=== PATIENT | female | born 1950 | race Caucasian/White ===

== ENCOUNTER 2019-07-12 10:00 | Outpatient (CLI) | payer MEDICARE, SELFPAY ==
--- NOTE | ~2019-07-12 | XR_ITS ---
XR lumbar spine min 4V DATE: 07/12/2019 10:36 INDICATION: Spondylolisthesis, radiculopathy. Surgery 10 years ago. TECHNIQUE: AP, lateral, bilateral oblique and coned lateral lumbosacral views COMPARISON: 07/07/2018 lumbar spine FINDINGS: Diffuse osteopenia. Status post posterior and interbody spinal fusion at L5-S1. There is cupping of the inferior vertebral endplate of L4 consistent with old compression fracture. There is moderate osteopenia. There is mild retrolisthesis at L4-5. There is mild degenerative disease at L2-3 and L3-4 and L4-5. The sacroiliac joints are intact. The included lower thoracic and lumbar pedicles appear intact. No recent fracture or any bone destruc tion of the lumbar spine is evident. IMPRESSION: Status post posterior and interbody spinal fusion at L5-S1 Chronic mild L4 compression fracture deformity Degenerative changes Reviewed, dictated and finalized at location A.
== END 2019-07-12 10:01 | disposition home or self-care (01) ==
PROVIDERS: PCP Family Medicine Adolescent Medicine; Visit Provider Neurological Surgery
DX: M47.26 Other spondylosis with radiculopathy, lumbar region (principal); M48.062 Spinal stenosis, lumbar region with neurogenic claudication; M46.1 Sacroiliitis, not elsewhere classified; M96.1 Postlaminectomy syndrome, not elsewhere classified; M48.56XA Collapsed vertebra, not elsewhere classified, lumbar region, initial encounter for fracture
CPT/HCPCS: 72110

== ENCOUNTER 2019-08-26 10:09 | Outpatient (CLI) | payer MEDICARE, SELFPAY ==
--- NOTE | ~2019-08-26 | XR_ITS ---
EXAMINATION: XR foot LT min 3V DATE: 08/26/2019 10:37 INDICATION: Left foot pain TECHNIQUE: Dorsoplantar, lateral, and 2 oblique views of the left foot were obtained. COMPARISON: None. FINDINGS: There is a questionable subtle oblique lucency in the medial base of the first distal phala nx extending to the interphalangeal joint. No additional acute osseous abnormality is suspected. Ther e is mild osteoarthritis at the first metatarsophalangeal joint. IMPRESSION: 1. Possible nondisplaced fracture at the medial base of the first distal phalanx. Recommend correlati on for tenderness at this site. Reviewed, dictated and finalized at location A. IMPRESSION: 1. Possible nondisplaced fracture at the medial base of the first distal phalan x. Recommend correlation for tenderness at this site.
== END 2019-08-26 10:10 | disposition home or self-care (01) ==
LOC: ANHIMG 10:16
PROVIDERS: PCP Family Medicine Adolescent Medicine; Visit Provider Family Medicine Adolescent Medicine
DX: M79.672 Pain in left foot (principal)
CPT/HCPCS: 73630

== ENCOUNTER 2019-09-11 12:50 | Inpatient (IN) | payer MEDICARE, SELFPAY ==
[2019-09-11] VITALS (11 sets, daily range): BP systolic 111–162; BP diastolic 45–88; PULSE 80–101; RESP 14–24; TEMP 36.4–39.5; O2SAT 94–100; BMI 22.1
--- NOTE | ~2019-09-11 | XR_ITS ---
EXAMINATION: XR chest 1V portable DATE: 09/11/2019 15:44 INDICATION: Fever. TECHNIQUE: A single frontal view of the chest was obtained. COMPARISON: Chest single view 05/05/2007 FINDINGS: The chest demonstrates clear lungs without pneumonia, pleural effusion, or pneumothorax. Th e heart size is normal. There are prominent paracardial fat pads. IMPRESSION: 1. No acute cardiopulmonary disease. Reviewed, dictated and finalized at location A.
--- NOTE | ~2019-09-11 | US_ITS ---
EXAMINATION: US venous doppler LE EXAM DATE: 09/13/2019 14:20 INDICATION: Bilateral leg edema. TECHNIQUE: Multiple grayscale, color flow and Doppler images of the lower extremity deep venous syste ms bilaterally were obtained and reviewed. Comparison is made to prior examination from 10/02/2011. FINDINGS: Right side: The right common femoral, femoral and profunda veins demonstrate normal color flow, respi ratory variation, augmentation and compressibility. Compressibility, color flow confirmed within the right popliteal, posterior tibial, peroneal, and greater saphenous veins. Left side: The left common femoral, femoral and profunda veins demonstrate normal color flow, respira tory variation, augmentation and compressibility. Compressibility, color flow confirmed within the l eft popliteal, posterior tibial, peroneal, and greater saphenous veins. IMPRESSION: 1. No lower extremity deep venous thrombosis bilaterally. Reviewed, dictated and finalized at location A.
--- NOTE | 2019-09-11 13:21 | ECG_ITS ---
Measurements Intervals [place] Rate: 99 P: 13 OR: 179 QRS: -21 QRSD: 80 T: 29 QT: 321 QTc: 413 Interpretive Statements SINUS RHYTHM INCOMPLETE RIGHT BUNDLE BRANCH BLOCK DELAYED PRECORDIAL R/S TRANSITION LOW QRS VOLTAGE IN PRECORDIAL LEADS BORDERLINE ST-T WAVE ABNORMALITY- ANT/HIGH LAT LEADS BASELINE ARTIFACT- I, II, AVR, AVL, V3 BORDERLINE ECG Electronically Signed On 09-11-2019 14:11:16 CDT by Jordan Smith D.O.
[2019-09-11 13:44] LABS: Basophils Percent Auto 0.3 % (0.2-1.2); Eosinophils Percent Auto 0.2 % (0-4.4); Hematocrit 35.1 % (37.0-47.0); Immature Granulocyte Absolute 0.05 K/mm3 (0.00-0.031); Immature Granulocyte Percent A 0.5 % (0-0.5); Lymphocytes Absolute Auto 0.94 K/mm3 (0.9-3.2); Lymphocytes Percent Auto 8.5 % (18.3-44.2); Mean Corpuscular Hemoglobin 30.2 pg (26-34); Mean Corpuscular Volume 81.6 fl (80-100); Mean Platelet Volume 8.4 fl (7.4-10.4); Monocytes Absolute Auto 1.3 K/mm3 (0.1-0.6); Monocytes Percent Auto 11.4 % (2.6-8.5); Neutrophils Absolute Auto 8.8 K/mm3 (1.3-6.7); Neutrophils Percent Auto 79.1 % (45.5-73.1); Platelet Count Result 232 k/mm3 (150-375); Red Cell Distribution Width 13.4 % (11.5-14.5); White Blood Count 11.1 K/mm3 (4.5-10.0)
[2019-09-11 14:04] LABS: Alanine Aminotransferase 15 U/L (4-35); Albumin Level 3.9 g/dL (3.5-5.1); Alkaline Phosphatase 106 U/L (38-126); Aspartate Amino Transferase 25 U/L (14-36); Bilirubin,Total 0.6 mg/dL (0.2-1.3); Blood Urea Nitrogen 13 mg/dL (7-17); Calcium 8.6 mg/dL (8.4-10.2); Carbon Dioxide 25 mmol/L (22-30); Chloride 87 mmol/L (98-107); Estimated CRCL calculation 40 ml/min; Estimated Glomerular Filt Rate > 60; Glucose 126 mg/dL (65-105); Potassium 2.6 mmol/L (3.4-5.0); Sodium 123 mmol/L (137-145)
--- NOTE | 2019-09-11 14:43 | PC.NURSE ---
Pt shivering in bed, c/o feeling cold. Temp taken - 103.1 oral, EDP aware. Pt placed on precautions.
[2019-09-11 15:21] LABS: Partial Thromboplastin Time 34.6 SECONDS (22.3-36.8)
[2019-09-11 15:26] LABS: CRP 25.3 mg/dL (<1.0)
[2019-09-11 15:31] LABS: Lactic Acid Reflex 1.4 mmol/L (0.7-2.1)
[2019-09-11 15:49] LABS: Add Urine Microscopic? YES; Appearance Urine Cloudy (Clear); Bacteria Urine Trace /hpf; Bilirubin Urine Negative (Negative); Blood Urine 1+ (Negative); Color Urine Yellow (Yellow); Glucose Urine UA Negative (Negative); Ketones Urine Trace mg/dL (Negative); Leukocyte Esterase Ur 2+ LEU/UL (Negative); Mucus Urine Rare /lpf; Nitrate Urine Negative (Negative); Protein Urine 2+ mg/dL (Negative); Specific Grav Ur 1.013 (1.001-1.035); Squamous Epithelial Cell Urine Rare /hpf (Few); Urobilinogen Urine Negative mg/dL (<2.0)
--- NOTE | 2019-09-11 16:02 | ED.GENADULT ---
HPI - General Adult General Chief complaint: Dizziness Stated complaint: dizzy/fall/constipation Time Seen by Provider: 09/11/19 14:37 History of Present Illness HPI narrative: 69 years old female brought to the emergency room from assisted complaining of dizziness, frequent falls, and constipation the last few days. 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 Patient denying any nausea, vomiting, diarrhea. Complaining of dizziness and general weakness. Related Data Home Medications Medication Instructions Recorded Confirmed hydrochlorothiazide 09/11/19 meloxicam 09/11/19 phenobarbital 09/11/19 phenytoin sodium extended PO 09/11/19 potassium chloride [Klor-Con M10] meq PO 09/11/19 rosuvastatin mg 09/11/19 Allergies Allergy/AdvReac Type Severity Reaction Status Date / Time No Known Allergies Allergy Verified 09/11/19 14:31 Review of Systems Review of Systems: Narrative: CONSTITUTIONAL: Denies fever, chills, or sweats. EYES: Denies visual changes, redness, or discharge. ENT: Denies rhinorrhea, congestion, sore throat, or otalgia. CARDIOVASCULAR: Denies chest pain, palpitations, or edema. RESPIRATORY: Denies cough or dyspnea. GASTROINTESTINAL: Denies abdominal pain, nausea, vomiting, or diarrhea. GENITOURINARY: Denies dysuria or hematuria. SKIN: Denies rash or itching. MUSCULOSKELETAL: Denies back pain, joint pain, or myalgia. NEUROLOGIC: Denies headache, numbness, or weakness. PSYCHIATRIC: Denies anxiety or depression. Exam Narrative: Exam Narrative: General appearance: Well-developed, well-nourished Skin: Normal color Head: Normocephalic, nontraumatic Eyes: Clear conjunctiva ENT: Oropharynx normal, ears normal, nose normal Neck: Supple, nontender Chest and respiratory: Airway patent, no respiratory distress, no accessory muscle use Heart: Regular rate/rhythm Abdomen: Soft, nontender, no organomegaly, quiet bowel sounds Vascular: Normal peripheral pulses, normal capillary refill. Musculoskeletal: Normal range of motion, lower back tenderness, chronic Neurologic: Alert and oriented ?3, deaf Course Course Emergency Course: Stable Vital Signs Vital signs: Vital Signs Temperature 37.3 C 09/11/19 13:19 Pulse Rate 101 H 09/11/19 13:19 Respiratory Rate 20 09/11/19 13:19 Blood Pressure 112/69 09/11/19 13:19 Pulse Oximetry 99 09/11/19 13:19 Temperature 39.5 C H 09/11/19 14:43 Pulse Rate 98 09/11/19 15:26 Respiratory Rate 14 09/11/19 15:26 Blood Pressure 162/72 H 09/11/19 15:26 Pulse Oximetry 98 09/11/19 15:26 Medical Decision Making MDM Narrative Medical decision making narrative: My differential diagnosis as below. My plan to get labs, UA, start IV fluid, further plan to follow Differential Diagnosis Differential Diagnosis: Electrolyte imbalance, hypotension, urinary tract infection, pneumonia Vital Signs Vital Signs: Vital Signs Temperature 37.3 C 09/11/19 13:19 Pulse Rate 101 H 09/11/19 13:19 Respiratory Rate 20 09/11/19 13:19 Blood Pressure 112/69 09/11/19 13:19 Pulse Oximetry 99 09/11/19 13:19 Temperature 39.5 C H 09/11/19 14:43 Pulse Rate 98 09/11/19 15:26 Respiratory Rate 14 09/11/19 15:26 Blood Pressure 162/72 H 09/11/19 15:26 Pulse Oximetry 98 09/11/19 15:26 Lab Data Result diagrams: 09/11/19 13:26 09/11/19 13:26 Labs: Lab Results 09/11/19 09/11/19 09/11/19 Range/Units 13:26 13:26 13:26 WBC 11.
[2019-09-11] MEDS: SODIUM CHLORIDE 0.9% IV 1,000 ML 999 ML IV CONT (16:35)
[2019-09-11] MEDS: POTASSIUM CHLORIDE 20 MEQ TABLET 40 MEQ PO (16:35)
[2019-09-11 16:55] LABS: Magnesium 1.5 mg/dL (1.6-2.3)
--- NOTE | 2019-09-11 18:18 | ADMGEN ---
This patient, Pari Trent, was admitted to [facility] Surg Room 325-01. Patient/family oriented to hospital policies and general routines including ID bracelet, bed and alarms, visiting hours, pain management, procedures, bathroom and other care routines, personal items, smoking policy, room service/diet, and visiting hours. Valuables list has been completed. Information on how to activate the Rapid Response Team has been discussed. Patient/Family are encouraged to report perceived risks to care and to ask questions if they do not understand what they are told or what they should do.
[2019-09-11] MEDS: SODIUM CHLORIDE 0.9% IV 1,000 ML 60 ML IV CONT (18:35)
[2019-09-11] MEDS: POTASSIUM CHLORIDE 20 MEQ TABLET.ER PO (18:50)
--- NOTE | 2019-09-11 20:26 | PC.NURSE ---
Recieved verbal order from Dr. Esqueda to remove all fluids from room. All fluids removed. Patient educated on not drinking any fluids tonight.
--- NOTE | 2019-09-11 20:37 | PM.IMHP ---
H&P: HPI History of Present Illness Chief complaint: hyponatremia,hypokalemia,fever,dizziness,chronic b Narrative: This is a 69 year old female who has a hearing deficit who presented to the hospital with a complaint of dizziness, recent frequent falls, and generalized weakness. The patient is known to live alone and was brought to the hospital for evaluation by her daughter. The patient denies any fevers or chills at home but was found to have a fever of 103.1 in the ER today. Her daughter was supposedly exposed to someone who had COVID-19 although her daughter tested negative for COVID-19. The patient denies any shortness of breath, cough, sore throat, chest pain, abdominal pain, dysuria, hematuria or diarrhea. She has had constipation over the past few days. Routine labs were obtained in the ER which demonstrated severe hyponatremia, hypokalemia, and hypomagnesemia. The patient was swabbed for COVID -19 in the ER today and admitted for further care. On my encounter with her she doesn't remember if she has ever had hyponatremia before. She denies passing out recently. She denies any other symptoms at this time. Review of Systems Review of Systems: All systems reviewed & are unremarkable except as noted in HPI and below PMFSH Past Medical History Medical History (Updated 09/12/19 @ 05:28 by Ralph Esqueda MD) Seizure disorder Social History Social History Smoking status: Never smoker Second hand tobacco smoke exposure: No Alcohol intake: never Substance use: never Gender identity (if verbalized by the patient): Female Spiritual care concerns: No Comments The patient is extremely hard of hearing and cannot tell me her past surgical or family medical history. Meds Home Medications and Allergies Home Medications Medication Instructions Recorded Confirmed Type hydrochlorothiazide 50 mg PO DAILY 09/11/19 09/11/19 History meloxicam 15 mg PO DAILY 09/11/19 09/11/19 History phenobarbital 16.2 mg PO TID 09/11/19 09/11/19 History phenytoin sodium extended 100 mg PO TID 09/11/19 09/11/19 History potassium chloride [Klor-Con M10] 10 meq PO DAILY 09/11/19 09/11/19 History rosuvastatin 10 mg PO DAILY 09/11/19 09/11/19 History Allergies Allergy/AdvReac Type Severity Reaction Status Date / Time No Known Allergies Allergy Verified 09/11/19 14:31 Vital Signs Vital Signs - 24 hr 09/11/19 13:19 09/11/19 14:36 09/11/19 14:43 Temperature 37.3 C 39.5 C H Pulse Rate 101 H 91 Respiratory Rate 20 16 Blood Pressure 112/69 133/88 Pulse Oximetry 99 100 09/11/19 15:26 09/11/19 16:16 09/11/19 16:34 Temperature 38.2 C H 38.2 C H Pulse Rate 98 99 Respiratory Rate 14 24 H Blood Pressure 162/72 H 130/68 Pulse Oximetry 98 98 09/11/19 18:01 09/11/19 18:02 09/11/19 18:55 Temperature 37.2 C Pulse Rate 87 87 86 Respiratory Rate 17 18 18 Blood Pressure 111/56 L 111/56 L 120/45 L Pulse Oximetry 94 94 98 Exam Const: General: cooperative, healthy appearing, no acute distress, alert and awake Nutritional Appearance: well nourished Orientation/consciousness: patient oriented x3 HENMT: Head: normal to inspection General nose exam: Normal external nose present Face and sinus: normal facial exam Mouth: Yes Normal oral and palatal mucosa present and Yes oropharynx normal Eyes: Pupils: Equal, round and reactive pupils present EOM: EOMs intact bilaterally Neck: Neck: supple and no JVD Thyroid: thyroid normal Lymphatic: lymphadenopathy not noted Resp: Effort & Inspection: normal respiratory effort Auscultation: clear to auscultation bilaterally Cardio: Rate: regular rate Rhythm: regular rhythm Heart sounds: no murmurs GI: Inspection: normal to inspection Auscultation: normal bowel sounds Skin: General skin exam: normal color and no rashes or lesions noted Neuro: General: patient oriented x3 Cranial nerves: Yes CN's II-XII inta
[2019-09-11 21:20] LABS: Blood Urea Nitrogen 14 mg/dL (7-17); Calcium 7.5 mg/dL (8.4-10.2); Carbon Dioxide 27 mmol/L (22-30); Chloride 92 mmol/L (98-107); Estimated CRCL calculation 45 ml/min; Estimated Glomerular Filt Rate > 60; Glucose 112 mg/dL (65-105); Potassium 3.5 mmol/L (3.4-5.0); Sodium 125 mmol/L (137-145)
[2019-09-11] MEDS: MAGNESIUM SULF 1 GM/D5W 100 ML 1 GM/100 ML BAG IVPB (21:46)
[2019-09-12] VITALS (14 sets, daily range): BP systolic 103–117; BP diastolic 51–72; PULSE 73–106; RESP 18; TEMP 36.8–38.4; O2SAT 95–100
[2019-09-12 00:11] LABS: Sodium Urine Random 35 meq/L
[2019-09-12 06:36] LABS: Basophils Percent Auto 0.5 % (0.2-1.2); Eosinophils Absolute Auto 0.1 K/mm3 (0-0.3); Hematocrit 33.4 % (37.0-47.0); Hemoglobin 11.9 g/dL (12.0-15.0); Immature Granulocyte Absolute 0.04 K/mm3 (0.00-0.031); Immature Granulocyte Percent A 0.5 % (0-0.5); Lymphocytes Absolute Auto 1.36 K/mm3 (0.9-3.2); Lymphocytes Percent Auto 16.4 % (18.3-44.2); Mean Corpuscular HGB Conc 35.6 g/dl (32-36); Mean Corpuscular Hemoglobin 29.5 pg (26-34); Mean Corpuscular Volume 82.9 fl (80-100); Mean Platelet Volume 8.6 fl (7.4-10.4); Monocytes Absolute Auto 1.2 K/mm3 (0.1-0.6); Monocytes Percent Auto 14.6 % (2.6-8.5); Neutrophils Absolute Auto 5.6 K/mm3 (1.3-6.7); Platelet Count Result 208 k/mm3 (150-375); Red Blood Count 4.03 M/mm3 (4.2-5.4); Red Cell Distribution Width 13.2 % (11.5-14.5); White Blood Count 8.3 K/mm3 (4.5-10.0)
[2019-09-12 06:43] LABS: Blood Urea Nitrogen 12 mg/dL (7-17); Calcium 7.9 mg/dL (8.4-10.2); Carbon Dioxide 26 mmol/L (22-30); Chloride 95 mmol/L (98-107); Estimated CRCL calculation 57 ml/min; Estimated Glomerular Filt Rate > 60; Glucose 99 mg/dL (65-105); Magnesium 1.9 mg/dL (1.6-2.3); Potassium 3.2 mmol/L (3.4-5.0); Sodium 128 mmol/L (137-145)
[2019-09-12] MEDS: ROSUVASTATIN 10 MG TABLET PO (08:43)
[2019-09-12] MEDS: POTASSIUM CHLORIDE 20 MEQ TABLET.ER PO ×2 (08:43→16:50)
[2019-09-12] MEDS: PHENYTOIN SODIUM 100 MG CAP PO ×3 (08:43→16:51)
[2019-09-12] MEDS: POTASSIUM CHLORIDE 10 MEQ TABLET.ER PO (08:43)
[2019-09-12 12:58] LABS: SARS-CoV-2 RNA PCR Negative
--- NOTE | 2019-09-12 14:20 | PM.IMPN ---
Progress Note: A&P Assessment and Plan (1) Acute hyponatremia: Code(s): E87.1 - Hypo-osmolality and hyponatremia Status: Acute Assessment and Plan: Likely secondary to dehydration and thiazide diuretic use. Continue light IV hydration with saline . Urine sodium 35 which slightly elevated as expected with diuretic (2) Acute hypokalemia: Code(s): E87.6 - Hypokalemia Status: Acute Assessment and Plan: Potassium replacement as needed. serum potassium 3.2 today. Continue to hold diuretic and replace potassium (3) Hypomagnesemia: Code(s): E83.42 - Hypomagnesemia Status: Acute Assessment and Plan: Magnesium 1.9 today (4) Fever: Qualifiers: Fever type: unspecified Qualified Code(s): R50.9 - Fever, unspecified Code(s): R50.9 - Fever, unspecified Status: Resolved Assessment and Plan: Antipyretics as needed. Chest x-ray clear, blood cultures preliminary negative, will check urine culture with leukocyte esterase and a few white cells in urine Repeat WBC today though is normal with normal differential (5) Hyperlipidemia: Qualifiers: Hyperlipidemia type: unspecified Qualified Code(s): E78.5 - Hyperlipidemia, unspecified Code(s): E78.5 - Hyperlipidemia, unspecified Status: Chronic Assessment and Plan: Continue crestor (6) Seizure disorder: Code(s): G40.909 - Epilepsy, unspecified, not intractable, without status epilepticus Status: Chronic Assessment and Plan: continue phenytoin and phenobarbital. Subjective Date/time seen: 09/12/19 14:20 Interval history: Date of visit 09/11. 69-year-old deaf lady with hyperlipidemia mild hypertension and seizure disorder admitted with fever hyponatremia and hypokalemia. Swab for culture which has returned negative and has had normal chest x-ray and no cough. Denies any GI symptoms and no urinary symptoms. Able to repeat some lips but cannot hear otherwise Exam Narrative: Exam Narrative: Blood pressure 0 4/50 pulse is 72 temp 36.8? with a T-max 39. 5 Neck supple no adenopathy Mouth is clear as is pharynx Lungs clear CV regular rate rhythm no murmurs Abdomen is soft nontender Extremities without edema distal pulses are 2+ Integument no rashes Objective Data Vital Signs Vital Signs: Vital Signs - 24 hr 09/11/19 14:36 09/11/19 14:43 09/11/19 15:26 Temperature 39.5 C H Pulse Rate 91 98 Respiratory Rate 16 14 Blood Pressure 133/88 162/72 H Pulse Oximetry 100 98 09/11/19 16:16 09/11/19 16:34 09/11/19 18:01 Temperature 38.2 C H 38.2 C H Pulse Rate 99 87 Respiratory Rate 24 H 17 Blood Pressure 130/68 111/56 L Pulse Oximetry 98 94 09/11/19 18:02 09/11/19 18:55 09/11/19 20:00 Temperature 37.2 C Pulse Rate 87 86 81 Respiratory Rate 18 18 Blood Pressure 111/56 L 120/45 L Pulse Oximetry 94 98 09/11/19 22:00 09/12/19 00:00 09/12/19 02:04 Temperature 36.4 C L 38.4 C H Pulse Rate 80 81 94 Respiratory Rate 18 18 Blood Pressure 120/61 117/57 L Pulse Oximetry 100 97 09/12/19 02:29 09/12/19 04:00 09/12/19 06:00 Temperature 38.4 C H 36.8 C Pulse Rate 86 73 Respiratory Rate 18 Blood Pressure 111/55 L Pulse Oximetry 95 09/12/19 08:00 09/12/19 10:00 09/12/19 12:00 Temperature 36.8 C Pulse Rate 81 73 77 Respiratory Rate 18 Blood Pressure 103/51 L Pulse Oximetry 100 Intake/Output Intake/Output: Intake & Output 09/09/19 09/10/19 09/11/19 09/12/19 23:59 23:59 23:59 23:59 Intake Total 1300 359 Output Total 600 1650 Balance 700 -1291 Meds/Results Medications: Active Medications Generic Name Dose Route Start Last Admin Trade Name Freq PRN Reason Stop Dose Admin Enoxaparin Sodium 40 mg 09/12/19 21:00 Lovenox SUB-Q HS EILEEN Sodium Chloride 1,000 mls @ 100 mls/hr 09/11/19 16:35 09/12/19 05:22 Normal Saline Iv IV CONT 60 mls/hr .Q10H EILEEN Infusion
[2019-09-12] MEDS: POTASSIUM CHLORIDE 20 MEQ TABLET 40 MEQ PO (15:31)
[2019-09-12] MEDS: SODIUM CHLORIDE 0.9% IV 1,000 ML 100 ML IV CONT (20:00)
[2019-09-12] MEDS: ENOXAPARIN 40 MG/0.4 ML SYRINGE SUB-Q (20:42)
[2019-09-13] VITALS (7 sets, daily range): BP systolic 105–135; BP diastolic 47–63; PULSE 65–93; RESP 16–18; TEMP 36.6–36.9; O2SAT 98–100
[2019-09-13] MEDS: SODIUM CHLORIDE 0.9% IV 1,000 ML 100 ML IV CONT
[2019-09-13 06:20] LABS: Blood Urea Nitrogen 11 mg/dL (7-17); Calcium 7.7 mg/dL (8.4-10.2); Carbon Dioxide 22 mmol/L (22-30); Chloride 106 mmol/L (98-107); Estimated CRCL calculation 77 ml/min; Estimated Glomerular Filt Rate > 60; Glucose 94 mg/dL (65-105); Magnesium 1.6 mg/dL (1.6-2.3); Potassium 3.5 mmol/L (3.4-5.0); Sodium 133 mmol/L (137-145)
[2019-09-13] MEDS: MAGNESIUM SULF 2 GM/WATER 50ML 2 GM/50 ML BAG IVPB (09:08)
[2019-09-13] MEDS: POTASSIUM CHLORIDE 20 MEQ TABLET 40 MEQ PO (09:08)
[2019-09-13] MEDS: ROSUVASTATIN 10 MG TABLET PO (09:10)
[2019-09-13] MEDS: PHENYTOIN SODIUM 100 MG CAP PO (09:10)
[2019-09-13] MEDS: POTASSIUM CHLORIDE 20 MEQ TABLET.ER PO (09:11)
[2019-09-16 05:06] LABS: Osmolality, Urine 306 mOsm/kg (50-1200)
--- NOTE | 2019-09-16 13:16 | PM.DS ---
DS: Admitting Diagnosis Admitting Diagnosis Admitting Diagnosis: Hypo-osmolality and hyponatremia DS: Discharge Diagnosis Discharge Diagnosis (1) Acute hyponatremia: Code(s): E87.1 - Hypo-osmolality and hyponatremia Status: Acute Assessment and Plan: Likely secondary to dehydration and thiazide diuretic use. Hydrated with saline . Urine sodium 35 which slightly elevated as expected with diuretic Na 133 adn K 3.5 at d/c and will decrease HCTZ to 25 mg per day (2) Acute hypokalemia: Code(s): E87.6 - Hypokalemia Status: Acute Assessment and Plan: serum potassium 3.5 at discharge and decreased diuretic as above (3) Hypomagnesemia: Code(s): E83.42 - Hypomagnesemia Status: Acute Assessment and Plan: Magnesium 1.6 at d/c (4) Fever: Qualifiers: Fever type: unspecified Qualified Code(s): R50.9 - Fever, unspecified Code(s): R50.9 - Fever, unspecified Status: Resolved Assessment and Plan: Antipyretics as needed. Chest x-ray clear, blood cultures as was urine culture were negative Repeat WBC was normal with normal differential thought secondary to viral syndrome covid swab was also negative (5) Hyperlipidemia: Qualifiers: Hyperlipidemia type: unspecified Qualified Code(s): E78.5 - Hyperlipidemia, unspecified Code(s): E78.5 - Hyperlipidemia, unspecified Status: Chronic Assessment and Plan: Continue crestor (6) Seizure disorder: Code(s): G40.909 - Epilepsy, unspecified, not intractable, without status epilepticus Status: Chronic Assessment and Plan: continue phenytoin and phenobarbital. DS: Summary Hospital Course Hospital Course: 69-year-old admitted with fever 395 with no obvious source and found to be hypokalemic and hyponatremic. Cultures blood in urine and cover swab were all negative as was chest x-ray. Sodium ashley with hydration and holding of her diuretics. At discharge sodium is 133. Hydrochlorothiazide was decreased to 25 mg daily and she will have basic metabolic profile drawn within 10 days and follow-up with her primary. She is afebrile for 24 hours prior to discharge fever thought to be secondary to viral syndrome Time Spent with Patient Time attestation: Total time spent providing and/or coordinating discharge services:35 minutes Exam Narrative: Exam Narrative: Condition on discharge blood pressure 106/48 pulse is 64 afebrile lungs clear neck no adenopathy and supple CV no murmurs abdomen soft nontender extremity trace edema and some bruising of right leg( negative venous Doppler) stable up in about taking her normal diet DS: Data Data Completed and Pending Labs on day of discharge: Labs from last 24 hours 09/11/19 23:40 Urine Osmolality 306 Preliminary micro results at discharge 09/11/19 15:05 Blood Culture - Preliminary Blood 09/11/19 15:05 Blood Culture - Preliminary Blood Discharge Plan Discharge Attending physician on discharge: Juan Antonio Gutierrez Consulting providers: Ramirez Castillo ; Jordan Smith ; Ralph Esqueda ; [employer]. Discharging Clinician: Juan Antonio Gutierrez Patient Disposition: Home, Self-Care Activity: as tolerated Diet: low sodium Patient Instructions: Antibiotic Form, Hyponatremia (DC), Fever in Adults (GEN), Hypokalemia (DC), Dizziness (GEN), Chronic Back Pain (GEN) Stand Alone Forms: General Discharge Information Follow-up/Referrals: Jorge Luis Mazariegos MD [Primary Care Provider] - 2 Weeks Discharge Medications: Continued meloxicam 15 mg tablet 15 mg PO DAILY RF: 0 phenytoin sodium extended 100 mg capsule 100 mg PO TID RF: 0 phenobarbital 32.4 mg tablet 16.2 mg PO TID RF: 0 rosuvastatin 10 mg tablet 10 mg PO DAILY RF: 0 potassium chloride [Klor-Con M10] 10 mEq tablet,ER particles/crystals 10 meq PO DAILY RF: 0 Changed hydro
== END 2019-09-13 16:00 | disposition home or self-care (01) | DRG 641 ==
LOC: ANHED 16:28 → ANH3MEDSUR 17:14
PROVIDERS: Emergency Medicine; Family Medicine; Admitting Provider Internal Medicine; Emergency Provider Emergency Medicine; PCP Family Medicine Adolescent Medicine; Visit Provider Internal Medicine
DX: E87.6 Hypokalemia (principal); E87.1 Hypo-osmolality and hyponatremia; R56.9 Unspecified convulsions; E83.42 Hypomagnesemia; H91.90 Unspecified hearing loss, unspecified ear; Z20.828 Contact with and (suspected) exposure to other viral communicable diseases; E86.0 Dehydration
CPT/HCPCS: 36415; 51701; 71045; 80048; 80053; 81001; 83605; 83735; 83935; 84300; 85025; 85610; 85730; 86140; 87040; 87086; 87088; 87635; 93005; 93970; 96365; 99285; A9270; C9803; J0131; J1650; J3475; J3480; J7030; U0003

== ENCOUNTER 2019-09-23 12:52 | Outpatient (CLI) | payer MEDICARE, SELFPAY ==
--- NOTE | ~2019-09-23 | CT_ITS ---
EXAMINATION: CT abdomen pelvis w con EXAM DATE: 09/23/2019 13:36 INDICATION: Right lower quadrant pain and fever. TECHNIQUE: Spiral CT of the abdomen and pelvis was performed following intravenous injection of 100 m L Omnipaque 350. Axial, coronal and sagittal images were reviewed. The dose-length product (DLP) fo r this examination was 237.50 mGy-cm. The exposure was tailored according to patient size (auto mA e xposure control), and iterative reconstruction (ASIR) was used as additional dose reduction technique . Correlation is made to MR abdomen 01/11/2019. FINDINGS: There is a lesion in the right liver lobe medially measuring 2.2 cm and possibly demonstrat ing peripheral nodular enhancement. Similar appearing lesion at the diaphragmatic dome measuring 1 cm . These are most likely hemangiomas. Correlation was made with MR abdomen 2018 which did identify 2 h emangiomas. Gallbladder is unremarkable. No biliary obstruction. There is a stone in the distal aspect of the r ight ureter, 2 cm from the ureterovesicular junction, measuring 5 mm with mild to moderate right-side d hydroureteronephrosis, some heterogeneous delay in right-sided nephrogram which could be from obstr uctive nephropathy but can't exclude pyelonephritis. There are 2 additional right calyceal stones sofia suring about 1 cm each. Small uterine fibroids. The bladder is unremarkable. There is no retroperit gomez or pelvic lymphadenopathy. There is mild scattered arteriosclerotic disease. The appendix is normal. The stomach and small bowel are unremarkable. There is moderate amount of c olonic stool. No free intraperitoneal gas. The heart is normal in size. There are no pericardial or pleural effusions. There is a right-sided pericardial measuring about 4 cm cyst. The lung bases a re unremarkable. There are no osteoblastic or osteolytic lesions identified. Lumbar fusion L5-S1. IMPRESSION: 1. Right distal ureteral obstructing 5 mm stone. 2. Heterogeneous right renal enhancement probably from obstructive nephropathy but pyelonephritis no t excludable. 3. Sizable right nephrolithiasis. 4. Liver hemangiomata. 5. Right pericardial cyst. 6. Normal appendix. Reviewed, dictated and finalized at location A. IMPRESSION: 1. Right distal ureteral obstructing 5 mm stone. 2. Heterogeneous right renal enhancement probably from obstructive nephropathy but pyelonephritis not excludable. 3. Sizable right nephrolithiasis. 4. Liver hemangiomata. 5. Right pericardial cyst. 6. Normal appendix.
== END 2019-09-23 12:53 | disposition home or self-care (01) ==
LOC: ANHIMG 12:54
PROVIDERS: PCP Family Medicine Adolescent Medicine; Visit Provider Family Medicine Adolescent Medicine
DX: R10.31 Right lower quadrant pain (principal); N20.2 Calculus of kidney with calculus of ureter; I31.8 Other specified diseases of pericardium
CPT/HCPCS: 36415; 74018; 74177; 80048; 83605; 85025; 87040; 87086; 96361; 96374; 96375; 96376; 99285; A9270; C1769; C2617; G0378; J0131; J0696; J2250; J2704; J7030; J7120; Q9967

== ENCOUNTER 2019-09-23 14:25 | Inpatient (IN) | payer MEDICARE, SELFPAY ==
[2019-09-23] VITALS (14 sets, daily range): BP systolic 92–141; BP diastolic 48–78; PULSE 76–122; RESP 17–23; TEMP 36.5–38.4; O2SAT 96–100; BMI 23.3
--- NOTE | ~2019-09-23 | XR_ITS ---
EXAMINATION: XR stent kub - surgery DATE: 09/23/2019 17:05 INDICATION: Right internal ureteral stent placement TECHNIQUE: Fluoroscopic images from a right internal ureteral stent placement are submitted for leida ramon 30 seconds of fluoroscopy time. 8 fluoroscopic images FINDINGS: There is a right double-J internal ureteral stent projecting in expected position, with proximal [place] loop at the level of the renal pelvis and distal loop in the pelvis within the bladder lumen. IMPRESSION: 1. Right internal ureteral stent placement. Please refer to real-time procedural findings for detai ls. Reviewed, dictated and finalized at location A. IMPRESSION: 1. Right internal ureteral stent placement. Please refer to real-time procedu ral findings for details.
--- NOTE | ~2019-09-23 | XR_ITS ---
EXAMINATION: XR abdomen/kub 1V DATE: 09/23/2019 16:14 INDICATION: Right ureteral stone. TECHNIQUE: A supine view of the abdomen on 2 radiographs was obtained. COMPARISON: CT abdomen and pelvis 09/23/2019 FINDINGS: There are no dilated loops of bowel. There is contrast in the kidneys, ureters, and bladder . There is mild right hydronephrosis and hydroureter. There is an asymmetrically dense right-sided co ntrast nephrogram. A calcified uterine fibroid is noted. There are changes of anterior and posterior fusion procedures at L5-S1. IMPRESSION: 1. Mild right hydronephrosis and hydroureter. Reviewed, dictated and finalized at location A.
--- NOTE | 2019-09-23 14:52 | PC.NURSE ---
PT IN WAITING ROOM, INFORMED THAT WE WILL NEED URINE SAMPLE, GIVEN SANITARY WIPE AND CUP AND INSTRUCTED HOW TO PROPERLY CATCH URINE. STATES SHE WILL TRY TO GIVE SAMPLE WHILE WAITING.
[2019-09-23 14:56] LABS: Hematocrit 40.8 % (37.0-47.0); Hemoglobin 14.3 g/dL (12.0-15.0); Mean Corpuscular Hemoglobin 29.9 pg (26-34); Mean Corpuscular Volume 85.2 fl (80-100); Mean Platelet Volume 8.3 fl (7.4-10.4); Platelet Count Result 386 k/mm3 (150-375); Red Blood Count 4.79 M/mm3 (4.2-5.4); Red Cell Distribution Width 14.2 % (11.5-14.5); White Blood Count 28.8 K/mm3 (4.5-10.0)
[2019-09-23 15:08] LABS: Anion Gap 15.3 mmol/L (7-16); Blood Urea Nitrogen 14 mg/dL (7-17); Calcium 9.1 mg/dL (8.4-10.2); Carbon Dioxide 24 mmol/L (22-30); Chloride 93 mmol/L (98-107); Estimated CRCL calculation 50 ml/min; Estimated Glomerular Filt Rate > 60; Glucose 107 mg/dL (65-105); Lactic Acid Reflex 1.6 mmol/L (0.7-2.1); Potassium 3.3 mmol/L (3.4-5.0); Sodium 129 mmol/L (137-145)
[2019-09-23 15:15] LABS: Band Neutrophils Percent 5 % (0-6); Lymphocytes Absolute Manual 0.57 K/mm3 (1.1-4.5); Monocytes Absolute Manual 1.44 K/mm3 (0.1-0.90); Monocytes Percent Manual 5 % (3-9); Neutrophils Absolute Manual 26.78 K/mm3 (1.7-7.2); Neutrophils Percent Manual 88 % (46-73); Total Cells Counted 100
[2019-09-23 15:16] LABS: Platelet Estimate Increased (Adequate)
--- NOTE | 2019-09-23 15:36 | ED.ABDPAIN ---
HPI - Abdominal Pain General Chief Complaint: Urogenital-Female Stated Complaint: KIDNEY STONE Time Seen by Provider: 09/23/19 14:50 Source: RN notes reviewed History of Present Illness HPI narrative: Patient presents to emergency department from home for kidney stone. Patient was seen by her PCP earlier today and had a CT scan showing a right-sided kidney stone that was 5 mm patient states she has been having a subjective fever. States she has history of chronic back pain but is been worse over the past 2 days. Began to note fevers today. Denies any nausea vomiting diarrhea or any other symptoms. Denies any previous history of kidney stones Related Data Home Medications Medication Instructions Recorded Confirmed meloxicam 15 mg PO DAILY 09/11/19 09/11/19 phenobarbital 16.2 mg PO TID 09/11/19 09/11/19 phenytoin sodium extended 100 mg PO TID 09/11/19 09/11/19 potassium chloride [Klor-Con M10] 10 meq PO DAILY 09/11/19 09/11/19 rosuvastatin 10 mg PO DAILY 09/11/19 09/11/19 Allergies Allergy/AdvReac Type Severity Reaction Status Date / Time No Known Allergies Allergy Verified 09/23/19 14:26 Review of Systems Review of Systems: Narrative: Gen.: Reports fever Eyes: Denies eye pain or visual change ENT: Denies congestion Respiratory: Denies shortness of breath or cough CV: Denies chest pain or palpitations GI: Reports abdominal pain, denies nausea or vomiting or diarrhea see HPI Musculoskeletal: Denies back pain or muscle pain Neuro: Denies numbness, tingling, weakness or focal weakness Skin: Denies rash Except as documented, all other systems reviewed and negative [facility] Past Medical History Medical History Seizure disorder Social History Social History Smoking status: Never smoker Second hand tobacco smoke exposure: No Alcohol intake: never Substance use: never Gender identity (if verbalized by the patient): Female Spiritual care concerns: No Exam Narrative: Exam Narrative: APPEARANCE: No acute distress, nontoxic, resting in bed HEENT: Normocephalic, atraumatic, OMM RESPIRATORY: No respiratory distress, clear to auscultation bilaterally with no rhonchi wheezing or rales CARDIOVASCULAR: RRR s murmur ABDOMINAL: Soft, nondistended, tender to palpation right lower quadrant left lower quadrant, bilateral flank tenderness no rebound or guarding MUSCULOSKELETAl: Moves all extremities. No clubbing, cyanosis or edema. NEURO: Awake and alert. Following commands, speech normal, no focal deficits SKIN:: Warm, dry. Normal Color PSYCHIATRIC: Normal affect/mood Course Course Emergency Course: Reviewed outpatient CT scan Discussed with Dr. Lechuga indicted emergency department evaluate the patient. Please take the patient to the OR at this time. Request admission the hospital service and patient started on Rocephin he will obtain a urine in the OR Discussed with DARNELL Lora for Dr. Rojas presentation work-up he agrees admission at this time Discussed with patient and family results of workup and diagnosis. Discussed need for admission. Patient and family understand and agree to current treatment plan Vital Signs Vital signs: Vital Signs Temperature 100 F H 09/23/19 14:27 Pulse Rate 122 H 09/23/19 14:27 Respiratory Rate 17 09/23/19 14:27 Blood Pressure 141/78 H 09/23/19 14:27 Pulse Oximetry 99 09/23/19 14:27 Temperature 100 F H 09/23/19 14:27 Pulse Rate 112 H 09/23/19 15:45 Respiratory Rate 23 H 09/23/19 15:45 Blood Pressure 132/73 09/23/19 15:45 Pulse Oximetry 97 09/23/19 15:45 MDM - Abdominal Pain Lab Data Result diagrams: 09/23/19 14:41 09/23/19 14:41 Labs: Lab Results 09/23/19 09/23/19 09/23/19 Range/Units 14:41 14:41 14:41 WBC 28.8 H (4.5-10.0) K/mm3 RBC 4.79 (4.2-5.4) M/mm3 Hgb 14.3 (12.0-15.0) g/dL
[2019-09-23] MEDS: SODIUM CHLORIDE 0.9% IV 1,000 ML 999 ML IV CONT (15:44)
--- NOTE | 2019-09-23 15:58 | WPDANESEPPF ---
Anes - Initial Pre Proc Eval Procedure: Operation Date: 09/23/19 16:00 Proposed Procedures p CYSTOSCOPY,RIGHT STONE EXTRACTION,RIGHT STENT PLACEMENT - Nicholas Lechuga MD Date/Time: 09/23/19 15:58 Surgeon: Nicholas Lechuga MD Pre Op Diagnosis: KIDNEY STONE Patient Data Age: 69 Gender: F Height: 1.57 m Weight: 58 kg Last Vital Signs Temp 37.7 C H 09/23/19 14:27 Pulse 112 H 09/23/19 15:45 Resp 23 H 09/23/19 15:45 BP 132/73 09/23/19 15:45 Pulse Ox 97 09/23/19 15:45 Allergies Allergy/AdvReac Type Severity Reaction Status Date / Time No Known Allergies Allergy Verified 09/23/19 14:26 Home Medications Medication Instructions Recorded Confirmed Type meloxicam 15 mg PO DAILY 09/11/19 09/11/19 History phenobarbital 16.2 mg PO TID 09/11/19 09/11/19 History phenytoin sodium extended 100 mg PO TID 09/11/19 09/11/19 History potassium chloride [Klor-Con M10] 10 meq PO DAILY 09/11/19 09/11/19 History rosuvastatin 10 mg PO DAILY 09/11/19 09/11/19 History hydrochlorothiazide 25 mg PO DAILY #0 tablet 09/13/19 09/11/19 Rx Laboratory Tests 09/23/19 09/23/19 09/23/19 14:41 14:41 14:41 WBC 28.8 K/mm3 H K/mm3 (4.5-10.0) RBC 4.79 M/mm3 M/mm3 (4.2-5.4) Hgb 14.3 g/dL g/dL (12.0-15.0) Hct 40.8 % % (37.0-47.0) MCV 85.2 fl fl (80-100) MCH 29.9 pg pg (26-34) MCHC 35.0 g/dl g/dl (32-36) RDW 14.2 % % (11.5-14.5) Plt Count 386 k/mm3 H D k/mm3 (150-375) MPV 8.3 fl fl (7.4-10.4) Immature Gran % (Auto) Not Reportable Neut % (Auto) Not Reportable Lymph % (Auto) Not Reportable [place] % (Auto) Not Reportable Eos % (Auto) Not Reportable Baso % (Auto) Not Reportable Lymph # (Auto) Not Reportable [place] # (Auto) Not Reportable Eos # (Auto) Not Reportable Baso # (Auto) Not Reportable Abs Immat Gran (auto) Not Reportable Absolute Neuts (auto) Not Reportable Absolute Nucleated RBC Not Reportable Total Counted 100 Neutrophils % (Manual) 88 % H % (46-73) Band Neutrophils % 5 % % (0-6) Lymphocytes % (Manual) 2.0 % L % (18-44) Monocytes % (Manual) 5 % % (3-9) Nucleated RBC % Not Reportable Abs Neuts (Manual) 26.78 K/mm3 H K/mm3 (1.7-7.2) Abs Lymphs (Manual) 0.57 K/mm3 L K/mm3 (1.1-4.5) Abs Monocytes (Manual) 1.44 K/mm3 H K/mm3 (0.1-0.90) Platelet Estimate Increased (Adequate) Sodium 129 mmol/L L mmol/L (137-145) Potassium 3.3 mmol/L L mmol/L (3.4-5.0) Chloride 93 mmol/L L mmol/L (98-107) Carbon Dioxide 24 mmol/L mmol/L (22-30) Anion Gap 15.3 mmol/L mmol/L (7-16) BUN 14 mg/dL mg/dL (7-17) Creatinine 0.70 mg/dL mg/dL (0.7-1.0) Estim Creat Clear Calc 50 ml/min ml/min Estimated GFR > 60 (59 - ) Glucose 107 mg/dL H mg/dL (65-105) Lactic Acid 1.6 mmol/L mmol/L (0.7-2.1) Calcium 9.1 mg/dL mg/dL (8.4-10.2) ECG: Date of Service: 09/11/19 Procedure(s): CA 12 lead EKG Accession Number(s): [id number] cc: ~ Measurements Intervals Blanket Rate: 99 P: 13 VA: 179 QRS: -21 QRSD: 80 T: 29 QT: 321 QTc: 413 Interpretive Statements SINUS RHYTHM INCOMPLETE RIGHT BUNDLE BRANCH BLOCK DELAYED PRECORDIAL R/S TRANSITION LOW QRS VOLTAGE IN PRECORDIAL LEADS BORDERLINE ST-T WAVE ABNORMALITY- ANT/HIGH LAT LEADS B
--- NOTE | 2019-09-23 16:11 | WPDURCON ---
Assessment and Plan Assessment and plan (1) Fever: Qualifiers: Fever type: unspecified Qualified Code(s): R50.9 - Fever, unspecified Code(s): R50.9 - Fever, unspecified Status: Resolved (2) Right ureteral stone: Code(s): N20.1 - Calculus of ureter Status: Acute (3) Obstructive pyelonephritis: Code(s): N11.1 - Chronic obstructive pyelonephritis Status: Acute Assessment and Plan: Admission for IV abx. pending cultures. Cysto./right ureteral stent placement today - stone extraction if simple. Urology Consult Note HPI Date Seen: 09/23/19 Requesting Physician: Nicholas Lechuga MD Primary Care Provider: Jorge Luis Mazariegos MD Consult Narrative Narrative: Pari Trent is a 69 year old female, without prior significant urological history, diagnosed earlier today with an outpatient CT scan is having a 5 mm obstructing right ureteral stone. The course the days she has developed low-grade fever with nausea and vomiting. She has no prior history urolithiasis. She denies gross hematuria Review of Systems Constitutional: Constitutional: Reports other (low-grade fever) Cardiovascular: Cardiovascular: Denies chest pain, Denies lightheadedness, Denies palpitations and Denies dyspnea Respiratory: Respiratory: Denies dyspnea Gastrointestinal: Gastrointestinal: Denies diarrhea, Denies nausea and Denies vomiting Genitourinary: Genitourinary: Denies hematuria and Denies dysuria Endocrine: Endocrine: Denies palpitations PMFSH Past Medical History Medical History Acute hypokalemia Fever Hyperlipidemia Hypomagnesemia Seizure disorder Social History Social History Smoking status: Never smoker Second hand tobacco smoke exposure: No Alcohol intake: never Substance use: never Gender identity (if verbalized by the patient): Female Spiritual care concerns: No Meds Home Medications and Allergies Home Medications Medication Instructions Recorded Confirmed Type meloxicam 15 mg PO DAILY 09/11/19 09/11/19 History phenobarbital 16.2 mg PO TID 09/11/19 09/11/19 History phenytoin sodium extended 100 mg PO TID 09/11/19 09/11/19 History potassium chloride [Klor-Con M10] 10 meq PO DAILY 09/11/19 09/11/19 History rosuvastatin 10 mg PO DAILY 09/11/19 09/11/19 History hydrochlorothiazide 25 mg PO DAILY #0 tablet 09/13/19 09/11/19 Rx Allergies Allergy/AdvReac Type Severity Reaction Status Date / Time No Known Allergies Allergy Verified 09/23/19 14:26 Vital Signs Vital Signs - 24 hr 09/23/19 14:27 09/23/19 15:45 Temperature 100 F H Pulse Rate 122 H 112 H Respiratory Rate 17 23 H Blood Pressure 141/78 H 132/73 Pulse Oximetry 99 97 Exam Const: General: no acute distress Resp: Effort & Inspection: normal respiratory effort GI: Inspection: non-distended GI Palp: No abdominal tenderness and No Guarding due to palpation present (GI) Auscultation: normal bowel sounds Results Labs CBC & Chem 7: 09/23/19 14:41 09/23/19 14:41 Labs: Short CBC 09/23/19 Range/Units 14:41 WBC 28.8 H (4.5-10.0) K/mm3 Hgb 14.3 (12.0-15.0) g/dL Hct 40.8 (37.0-47.0) % Plt Count 386 H D (150-375) k/mm3 [facility] 09/23/19 14:41 Sodium 129 L Potassium 3.3 L Chloride 93 L Carbon Dioxide 24 BUN 14 Creatinine 0.70 Glucose 107 H Calcium 9.1
[2019-09-23] MEDS: LACTATED RINGERS 1,000 ML 30 ML IV CONT (16:25)
--- NOTE | 2019-09-23 17:02 | PM.PROC ---
Procedure Note - Detailed Date of procedure: 09/23/19 Pre-op diagnosis: KIDNEY STONE Post-op diagnosis: same Procedure performed: 1. Cystoscopy, right ureteroscopy with stone extraction. 2. Right uretral stent placement Description of procedure: The patient was brought to the operative suite where she is prepped and draped in a routine sterile fashion while in the dorsal lithotomy position after the uneventful induction of a general LMA anesthetic. A 19F rigid cystoscope was placed in the bladder. The patient had no evidence of urethral stricture or bladder neck contracture. The bladder mucosa was endoscopically normal without hyperemia or neoplasm. There was a single, orthotopic ureteral orifice bilaterally. A 0.035 glidewire was advanced into the right renal pelvis under fluoroscopy. The distal ureter was dilated with an 8F/10F ureteral dilator. Ureteroscopy was undertaken with a short, tapered, semi-rigid ureteroscope and the stone was extracted with ease using a 1.9F Escape disposable stone basket. Due to the presence of marked leukocytosis and with recent fever I opted to place a ureteral stent. A 4.8 F stent was positioned with the proximal coil in the right renal pelvis and distal coil in the bladder. Scopes wires removed.. The patient's bladder was emptied and was taken to the recovery room having tolerated this procedure well. Anesthesia: GLMA Surgeon: Nicholas Lechuga MD Estimated blood loss (mL): 0 Drains: No Packing: No Pathology: yes Complications: No immediate complications Condition: stable Disposition: PACU
--- NOTE | 2019-09-23 17:20 | SUR.PREOP ---
1615; PT DEAF, SIGNS AND READ LIPS. COMMUNICATED WITH PT BY WRITING DOWN QUESTIONS. PT SPEAKS CLEARLY. 1700; DAUGHTER ARRIVED. SHE IS HERE TO SIGN FOR PT.
--- NOTE | 2019-09-23 17:42 | SUR.PHASEI ---
[id number] sbar faxed floor notified
--- NOTE | 2019-09-23 18:40 | ADMGEN ---
This patient, Pari Trent, was admitted to [facility] Surg Room 324-01. Patient/family oriented to hospital policies and general routines including ID bracelet, bed and alarms, visiting hours, pain management, procedures, bathroom and other care routines, personal items, smoking policy, room service/diet, and visiting hours. Valuables list has been completed. Information on how to activate the Rapid Response Team has been discussed. Patient/Family are encouraged to report perceived risks to care and to ask questions if they do not understand what they are told or what they should do.
[2019-09-23] MEDS: ACETAMINOPHEN 325 MG TABLET 650 MG PO (21:24)
[2019-09-23] MEDS: PHENYTOIN SODIUM 100 MG CAP PO (22:52)
--- NOTE | 2019-09-23 22:52 | PM.IMHP ---
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 The patient was just admitted here the 18th of this month. She thought that she possibly had covid 19 she was found have a fever of 103.1 at that time. Patient was found to be negative for covid 19. Her daughter also tested negative at that time. She does read lips and she is able to read the information. The patient stated that she had a history of back surgery in the past and that she has chronic back pain. The patient was having some back pain and she with her primary care doctor who ordered a CT scan which shows a right-sided kidney stone that was 5 mm. The patient also had a subjective fever and was thought to have pyelonephritis. She was started on Rocephin. Urology has been consulted. She was found to have an obstructing right ureteral stone. No prior history of kidney stones. The patient had a cystoscopy right ureteroscopy with stone extraction. Right ureteral stent placement. Patient stated that she has a headache but otherwise she feels much better now that she off the stent. See the procedure note. I spent approximately 1 hour with the patient date of service 09/23/2019. Review of Systems Review of Systems: Narrative: The patient is deaf. we communicated through writing and hand motion. I stood about 10 ft away so she could read my lips at times. She stated she had a small amount of diarrhea earlier today and that she had back pain that was worsened normal. All systems reviewed & are unremarkable except as noted in HPI and below Constitutional: Constitutional: Reports as per HPI and Reports no additional constitutional complaints Eyes: Eyes: Reports as per HPI and Reports no additional eye complaints ENT: Reports system reviewed and no additional complaints, except as documented and Reports Normal hearing present Cardiovascular: Cardiovascular: Reports no additional cardiovascular complaints Respiratory: Respiratory: Reports no additional respiratory complaints and Reports no additional respiratory complaints Gastrointestinal: Gastrointestinal: Reports as per HPI and Reports no additional gastrointestinal complaints Musculoskeletal: Musculoskeletal: Reports no additional musculoskeletal complaints Integumentary/Breasts: Skin/Breast: Reports system reviewed and no additional complaints, except as docu and Reports as per HPI Neurologic: Reports system reviewed and no additional complaints, except as documented and Reports as per HPI Psychiatric: Psychiatric: Reports no additional psychiatric complaints and Reports as per HPI Endocrine: Endocrine: Reports no additional endocrine complaints Hematologic/Lymphatic: Hematologic/Lymphatic: Reports no additional hematologic/lymphatic complaints Allergic/Immunologic: Allergic/Immunologic: Reports no additional allergic/immunologic complaints [facility] Past Medical History Medical History (Updated 09/23/19 @ 23:13 by Geno Leo NP) Acute hypokalemia Fever Hyperlipidemia Hypertension Hypomagnesemia Seizure disorder Suspected 2019 novel coronavirus infection she tested negative Surgical History Surgical History (Updated 09/23/19 @ 23:02 by Geno Leo NP) H/O bilateral cataract extraction History of back surgery Family History Family History Mother Cancer of female organs Father Heart disease Social History Social History (Updated 09/23/19 @ 23:06 by Geno Leo NP) Social History: the patient stated that she has 1 daughter and she is . She said that she worked for the [employer] for approximately 35 years and she is retired now. She is a lifelong nonsmoker. She said she uses socially drink but she does not anymore. She has 1 daughter and states that she does not have any durable power state's attorney for healthcare. She does tell me that she
[2019-09-24 02:00] VITALS: BP 100/49; PULSE 85; RESP 18; TEMP 36.6; O2SAT 99
[2019-09-24 06:00] VITALS: BP 126/54; PULSE 100; RESP 18; TEMP 37.1; O2SAT 98
[2019-09-24 06:18] LABS: Basophils Percent Auto 0.2 % (0.2-1.2); Eosinophils Percent Auto 0.1 % (0-4.4); Hematocrit 33.4 % (37.0-47.0); Hemoglobin 11.5 g/dL (12.0-15.0); Immature Granulocyte Absolute 0.12 K/mm3 (0.00-0.031); Immature Granulocyte Percent A 0.7 % (0-0.5); Lymphocytes Absolute Auto 0.76 K/mm3 (0.9-3.2); Lymphocytes Percent Auto 4.2 % (18.3-44.2); Mean Corpuscular HGB Conc 34.4 g/dl (32-36); Mean Corpuscular Hemoglobin 29.4 pg (26-34); Mean Corpuscular Volume 85.4 fl (80-100); Mean Platelet Volume 8.1 fl (7.4-10.4); Monocytes Absolute Auto 0.9 K/mm3 (0.1-0.6); Monocytes Percent Auto 4.8 % (2.6-8.5); Neutrophils Absolute Auto 16.1 K/mm3 (1.3-6.7); Platelet Count Result 311 k/mm3 (150-375); Red Blood Count 3.91 M/mm3 (4.2-5.4); Red Cell Distribution Width 14.3 % (11.5-14.5); White Blood Count 17.9 K/mm3 (4.5-10.0)
[2019-09-24 07:19] LABS: Alanine Aminotransferase 16 U/L (4-35); Albumin Level 3.4 g/dL (3.5-5.1); Alkaline Phosphatase 85 U/L (38-126); Aspartate Amino Transferase 19 U/L (14-36); Bilirubin,Total 0.6 mg/dL (0.2-1.3); Blood Urea Nitrogen 13 mg/dL (7-17); Calcium 8.5 mg/dL (8.4-10.2); Carbon Dioxide 27 mmol/L (22-30); Chloride 98 mmol/L (98-107); Estimated CRCL calculation 44 ml/min; Estimated Glomerular Filt Rate > 60; Glucose 96 mg/dL (65-105); Magnesium 1.6 mg/dL (1.6-2.3); Sodium 132 mmol/L (137-145)
--- NOTE | 2019-09-24 07:26 | WPDUROPN2 ---
Progress Note: A&P Assessment and Plan (1) Obstructive pyelonephritis: Code(s): N11.1 - Chronic obstructive pyelonephritis Status: Acute (2) Right ureteral stone: Code(s): N20.1 - Calculus of ureter Status: Acute Assessment and Plan: Tolerating right ureteral stent well. Remains on ceftriaxone pending urine and blood cultures. She will need stent removal in approximately 2 weeks. Subjective Subjective Date/Time Seen: 09/24/19 07:26 Comfortable, flank/abdominal pain much improved. Febrile overnight. Cultures pending. Review of Systems Cardiovascular: Cardiovascular: Denies chest pain, Denies lightheadedness, Denies palpitations and Denies dyspnea Respiratory: Respiratory: Denies dyspnea Gastrointestinal: Gastrointestinal: Denies diarrhea, Denies nausea and Denies vomiting Genitourinary: Genitourinary: Denies hematuria and Denies dysuria Endocrine: Endocrine: Denies palpitations Exam Const: General: no acute distress Resp: Effort & Inspection: normal respiratory effort GI: Inspection: non-distended GI Palp: No abdominal tenderness and No Guarding due to palpation present (GI) Auscultation: normal bowel sounds Objective Data Vital Signs Vital Signs: Vital Signs - 24 hr 09/23/19 14:27 09/23/19 15:45 09/23/19 16:01 Temperature 100 F H Pulse Rate 122 H 112 H 108 H Respiratory Rate 17 23 H 20 Blood Pressure 141/78 H 132/73 132/73 Pulse Oximetry 99 97 99 09/23/19 16:20 09/23/19 17:10 09/23/19 17:25 Temperature 98.4 F 97.7 F Pulse Rate 105 H 91 89 Respiratory Rate 18 18 20 Blood Pressure 128/62 107/59 L 101/70 Pulse Oximetry 97 98 99 09/23/19 17:35 09/23/19 17:50 09/23/19 18:05 Temperature Pulse Rate 91 91 96 Respiratory Rate 20 20 20 Blood Pressure 112/52 L 107/75 113/54 L Pulse Oximetry 99 99 100 09/23/19 18:21 09/23/19 18:40 09/23/19 18:55 Temperature 98.1 F Pulse Rate 96 93 92 Respiratory Rate 18 18 Blood Pressure 102/63 92/48 L 113/51 L Pulse Oximetry 100 96 98 09/23/19 20:15 09/23/19 22:00 Temperature 98.1 F 101.1 F H Pulse Rate 93 76 Respiratory Rate 18 20 Blood Pressure 114/50 L 120/62 Pulse Oximetry 100 99 Intake/Output Intake/Output: Intake & Output 09/21/19 09/22/19 09/23/19 09/24/19 23:59 23:59 23:59 23:59 Intake Total 1200 Balance 1200 Meds/Results Medications: Active Medications Generic Name Dose Route Start Last Admin Trade Name Freq PRN Reason Stop Dose Admin Acetaminophen 650 mg 09/23/19 21:05 09/23/19 21:24 Tylenol Tablet PO 650 mg Q4H PRN Administration Mild Pain (1-3) or Fever Fentanyl Citrate 25 mcg 09/23/19 15:57 Sublimaze IV PUSH Q2M PRN Pain Hydromorphone HCl 0.25 mg 09/23/19 15:57 Dilaudid Inj IV PUSH Q5M PRN Pain Lactated Ringer's 1,000 mls @ 30 mls/hr 09/23/19 16:00 09/23/19 18:28 Lr - Lactated Ringers Iv IV CONT Infused .Q24H EILEEN Infusion Lactated Ringer's 1,000 mls @ 30 mls/hr 09/23/19 16:00 Lr - Lactated Ringers Iv IV CONT .Q24H EILEEN Ceftriaxone Sodium/Dextrose 1 gm in 50 mls @ 100 mls/hr 09/24/19 18:00 Rocephin 1 Gm/D5w 50 Ml IVPB QPM EILEEN Ondansetron HCl 4 mg 09/23/19 15:57 Zofran Inj IV PUSH ONCE PRN Nausea Phenobarbital 15 mg 09/24/19 09:00 Phenobarbital Tab PO TID [facility] Phenytoin Sodium 100 mg 09/23/19 22:40 09/23/19 22:52 Dilantin Kapseals PO 100 mg TID [facility] Administration Potassium Chloride 10 meq 09/24/19 09:00 Kcl Tablet PO DAILY [facility] Rosuvastatin Calcium 10 mg 09/24/19 09:00 Crestor PO DAILY [facility] Radiology Results: ITS Impressions Abdomen X-Ray 09/23/19 16:19 IMPRESSION: 1. Mild right hydronephrosis and hydroureter. Ureter Stent X-Ray 09/23/19 17:09 IMPRESSION: 1. Right internal ureteral stent placement. Please refer to real-time procedural findings for details. Labs Labs: Labo
--- NOTE | 2019-09-24 07:54 | WPDANESPN ---
Anes - Prog Note Post-Op Date/Time: 09/24/19 07:54 Cardiovascular status: normal Respiratory status: normal Airway patency: baseline Mental status: baseline Post-Op hydration status: normal Vital Signs: Last Vital Signs Temp 37.1 C 09/24/19 06:00 Pulse 100 09/24/19 06:00 Resp 18 09/24/19 06:00 BP 126/54 L 09/24/19 06:00 Pulse Ox 98 09/24/19 06:00 I/O: Intake & Output 09/23/19 09/23/19 09/24/19 15:59 23:59 07:59 Intake Total 100 1100 550 Output Total 1400 Balance 100 1100 -850 Laboratory Tests 09/24/19 05:52 09/24/19 05:52 09/23/19 09/23/19 09/23/19 14:41 14:41 14:41 WBC 28.8 H RBC 4.79 Hgb 14.3 Hct 40.8 MCV 85.2 MCH 29.9 MCHC 35.0 RDW 14.2 Plt Count 386 H D MPV 8.3 Immature Gran % (Auto) Not Reportable Neut % (Auto) Not Reportable Lymph % (Auto) Not Reportable [place] % (Auto) Not Reportable Eos % (Auto) Not Reportable Baso % (Auto) Not Reportable Lymph # (Auto) Not Reportable [place] # (Auto) Not Reportable Eos # (Auto) Not Reportable Baso # (Auto) Not Reportable Abs Immat Gran (auto) Not Reportable Absolute Neuts (auto) Not Reportable Absolute Nucleated RBC Not Reportable Total Counted 100 Neutrophils % (Manual) 88 H Band Neutrophils % 5 Lymphocytes % (Manual) 2.0 L Monocytes % (Manual) 5 Nucleated RBC % Not Reportable Abs Neuts (Manual) 26.78 H Abs Lymphs (Manual) 0.57 L Abs Monocytes (Manual) 1.44 H Platelet Estimate Increased Sodium 129 L Potassium 3.3 L Chloride 93 L Carbon Dioxide 24 Anion Gap 15.3 BUN 14 Creatinine 0.70 Estim Creat Clear Calc 50 Estimated GFR > 60 Glucose 107 H Lactic Acid 1.6 Calcium 9.1 Magnesium Total Bilirubin AST ALT Alkaline Phosphatase Total Protein Albumin 09/24/19 09/24/19 05:52 05:52 WBC 17.9 H RBC 3.91 L Hgb 11.5 L Hct 33.4 L MCV 85.4 MCH 29.4 MCHC 34.4 RDW 14.3 Plt Count 311 MPV 8.1 Immature Gran % (Auto) 0.7 H Neut % (Auto) 90.0 H Lymph % (Auto) 4.2 L [place] % (Auto) 4.8 Eos % (Auto) 0.1 Baso % (Auto) 0.2 Lymph # (Auto) 0.76 L [place] # (Auto) 0.9 H Eos # (Auto) 0.0 Baso # (Auto) 0.0 Abs Immat Gran (auto) 0.12 H Absolute Neuts (auto) 16.1 H Absolute Nucleated RBC 0.0 Total Counted Neutrophils % (Manual) Band Neutrophils % Lymphocytes % (Manual) Monocytes % (Manual) Nucleated RBC % 0.0 Abs Neuts (Manual) Abs Lymphs (Manual) Abs Monocytes (Manual) Platelet Estimate Sodium 132 L Potassium 3.0 L Chloride 98 Carbon Dioxide 27 Anion Gap 10.0 BUN 13 Creatinine 0.80 Estim Creat Clear Calc 44 Estimated GFR > 60 Glucose 96 Lactic Acid Calcium 8.5 Magnesium 1.6 Total Bilirubin 0.6 AST 19 ALT 16 Alkaline Phosphatase 85 Total Protein 6.0 L Albumin 3.4 L Post-procedural complaints: none Patient Feedback: Patient satisfied with anesthetic care.
[2019-09-24 10:00] VITALS: BP 104/58; PULSE 93; RESP 20; TEMP 36.5; O2SAT 96
[2019-09-24] MEDS: ROSUVASTATIN 10 MG TABLET PO (10:03)
[2019-09-24] MEDS: POTASSIUM CHLORIDE 10 MEQ TABLET.ER PO (10:03)
[2019-09-24] MEDS: POTASSIUM CHLORIDE 20 MEQ PACKET (FOR LIQUID) 40 MEQ PO (10:03)
[2019-09-24] MEDS: PHENYTOIN SODIUM 100 MG CAP PO ×3 (10:04→17:13)
[2019-09-24 14:00] VITALS: BP 106/53; PULSE 100; RESP 18; TEMP 37.3; O2SAT 98
[2019-09-24 16:08] LABS: Add Urine Microscopic? YES; Appearance Urine Clear (Clear); Bilirubin Urine Negative (Negative); Blood Urine 3+ (Negative); Color Urine Yellow (Yellow); Glucose Urine UA Negative (Negative); Ketones Urine Negative (Negative); Leukocyte Esterase Ur 3+ LEU/UL (Negative); Mucus Urine Rare /lpf; Nitrate Urine Negative (Negative); Protein Urine 1+ mg/dL (Negative); Urobilinogen Urine Negative mg/dL (<2.0); WBC Urine 21-30 /hpf
--- NOTE | 2019-09-24 16:10 | PM.IMPN ---
Progress Note: A&P Assessment and Plan (1) Obstructive pyelonephritis: Code(s): N11.1 - Chronic obstructive pyelonephritis Status: Acute Assessment and Plan: please see operative report. Looks like the kidney stone was extracted per Urology and a stent was placed. The patient stated that she is not having any more discomfort. She has been placed on Rocephin. Urine cultures are pending. As well as blood cultures. 09/24/19 16:10 patient is 69-year-old female with no significant past medical history regarding kidney stone, had developed right-sided flank pain had a CT scan of the abdomen showed 5 mm stone patient was seen by urologist was taken to the urology lab had a cystoscopy and stent was placed, stent will have to be removed in 2 weeks, patient also had a low-grade fever is suspicious for UTI and being treated with Rocephin, patient is deaf and her daughter is helping translate, overall patient states feeling much better denies any abdominal pain nausea or vomiting fever or chills, will follow-up on urine culture sensitivity and further recommendation to follow (2) Hyperlipidemia: Qualifiers: Hyperlipidemia type: unspecified Qualified Code(s): E78.5 - Hyperlipidemia, unspecified Code(s): E78.5 - Hyperlipidemia, unspecified Status: Chronic Assessment and Plan: Continue with rosuvastatin. (3) Seizure disorder: Code(s): G40.909 - Epilepsy, unspecified, not intractable, without status epilepticus Status: Chronic Assessment and Plan: Continue with phenobarbital and phenytoin. (4) Acute hyponatremia: Code(s): E87.1 - Hypo-osmolality and hyponatremia Status: Acute Assessment and Plan: appears to be chronic. Patient was given IV fluids in the emergency room. She was also given lactated Ringer's in the procedure room. (5) Hypertension: Code(s): I10 - Essential (primary) hypertension Status: Chronic Assessment and Plan: I held her hydrochlorothiazide due to her low potassium. (6) Right kidney stone: Code(s): N20.0 - Calculus of kidney Status: Acute Assessment and Plan: Please see operative report. (7) Hypokalemia: Code(s): E87.6 - Hypokalemia Status: Acute Assessment and Plan: Patient is on daily potassium and I held her hydrochlorothiazide recheck basic metabolic panel in the a.m.. Subjective Date/time seen: 09/24/19 16:10 patient is 69-year-old female with no significant past medical history regarding kidney stone, had developed right-sided flank pain had a CT scan of the abdomen showed 5 mm stone patient was seen by urologist was taken to the urology lab had a cystoscopy and stent was placed, stent will have to be removed in 2 weeks, patient also had a low-grade fever is suspicious for UTI and being treated with Rocephin, patient is deaf and her daughter is helping translate, overall patient states feeling much better denies any abdominal pain nausea or vomiting fever or chills, will follow-up on urine culture sensitivity and further recommendation to follow Review of Systems Review of Systems: All systems reviewed & are unremarkable except as noted in HPI and below Exam Const: General: comfortable and no acute distress HENMT: General nose exam: Normal nares present Eyes: Sclera: sclerae normal Neck: Neck: supple Resp: Effort & Inspection: normal respiratory effort Auscultation: clear to auscultation bilaterally Cardio: Rate: regular rate Rhythm: regular rhythm GI: Auscultation: normal bowel sounds Other: diffusely tender Skin: General skin exam: normal color Neuro: Sensory Exam: normal sensation Extrem: General: normal to inspection Psych: Affect: Anxious affect present Objective Data Vital Signs Vital Signs: Vital Signs - 24 hr 09/23/19 16:20 09/23/19 17:10 09/23/19 17:25 Temperature 98.4 F 97.7 F Pulse Rate 105 H 91 89
[2019-09-24] MEDS: ACETAMINOPHEN 325 MG TABLET 650 MG PO (17:12)
[2019-09-24 18:00] VITALS: BP 117/53; PULSE 84; RESP 18; TEMP 36.8; O2SAT 97
[2019-09-24 22:00] VITALS: BP 126/61; PULSE 76; RESP 18; TEMP 36.6; O2SAT 96
[2019-09-25 06:00] VITALS: BP 132/66; PULSE 76; RESP 18; TEMP 36.5; O2SAT 97
[2019-09-25 06:35] LABS: Hematocrit 32.6 % (37.0-47.0); Hemoglobin 11.3 g/dL (12.0-15.0); Mean Corpuscular HGB Conc 34.7 g/dl (32-36); Mean Corpuscular Hemoglobin 29.8 pg (26-34); Mean Platelet Volume 8.4 fl (7.4-10.4); Platelet Count Result 292 k/mm3 (150-375); Red Blood Count 3.79 M/mm3 (4.2-5.4); Red Cell Distribution Width 14.4 % (11.5-14.5); White Blood Count 8.4 K/mm3 (4.5-10.0)
[2019-09-25 06:50] LABS: Anion Gap 10.2 mmol/L (7-16); Blood Urea Nitrogen 10 mg/dL (7-17); Calcium 8.2 mg/dL (8.4-10.2); Carbon Dioxide 24 mmol/L (22-30); Chloride 102 mmol/L (98-107); Estimated CRCL calculation 58 ml/min; Estimated Glomerular Filt Rate > 60; Glucose 98 mg/dL (65-105); Potassium 3.2 mmol/L (3.4-5.0); Sodium 133 mmol/L (137-145)
[2019-09-25] MEDS: PHENYTOIN SODIUM 100 MG CAP PO ×3 (09:40→18:38)
[2019-09-25] MEDS: ROSUVASTATIN 10 MG TABLET PO (09:41)
[2019-09-25] MEDS: POTASSIUM CHLORIDE 20 MEQ PACKET (FOR LIQUID) 40 MEQ PO (09:41)
[2019-09-25] MEDS: MAGNESIUM OXIDE 400 MG TABLET PO (09:41)
[2019-09-25] MEDS: POTASSIUM CHLORIDE 10 MEQ TABLET.ER PO (09:41)
--- NOTE | 2019-09-25 11:12 | PM.IMPN ---
Progress Note: A&P Assessment and Plan (1) Obstructive pyelonephritis: Code(s): N11.1 - Chronic obstructive pyelonephritis Status: Acute Assessment and Plan: please see operative report. Looks like the kidney stone was extracted per Urology and a stent was placed. The patient stated that she is not having any more discomfort. She has been placed on Rocephin. Urine cultures are pending. As well as blood cultures. 09/25/19 11:12 patient is 69-year-old female with no significant past medical history regarding kidney stone, had developed right-sided flank pain had a CT scan of the abdomen showed 5 mm stone patient was seen by urologist was taken to the urology lab had a cystoscopy and stent was placed, stent will have to be removed in 2 weeks, patient also had a low-grade fever is suspicious for UTI and being treated with Rocephin, patient is deaf, able to read lips and communicate some. urine culture does not show any growth, blood culture is growing gram-negative bacilli, will continue Rocephin and follow-up on the sensitivity and identification, patient is clinically stable. (2) Hyperlipidemia: Qualifiers: Hyperlipidemia type: unspecified Qualified Code(s): E78.5 - Hyperlipidemia, unspecified Code(s): E78.5 - Hyperlipidemia, unspecified Status: Chronic Assessment and Plan: Continue with rosuvastatin. (3) Seizure disorder: Code(s): G40.909 - Epilepsy, unspecified, not intractable, without status epilepticus Status: Chronic Assessment and Plan: Continue with phenobarbital and phenytoin. (4) Acute hyponatremia: Code(s): E87.1 - Hypo-osmolality and hyponatremia Status: Acute Assessment and Plan: appears to be chronic. Patient was given IV fluids in the emergency room. She was also given lactated Ringer's in the procedure room. (5) Hypertension: Code(s): I10 - Essential (primary) hypertension Status: Chronic Assessment and Plan: I held her hydrochlorothiazide due to her low potassium. (6) Right kidney stone: Code(s): N20.0 - Calculus of kidney Status: Acute Assessment and Plan: Please see operative report. (7) Hypokalemia: Code(s): E87.6 - Hypokalemia Status: Acute Assessment and Plan: Patient is on daily potassium and I held her hydrochlorothiazide recheck basic metabolic panel in the a.m.. Subjective Date/time seen: 09/25/19 11:12 patient is 69-year-old female with no significant past medical history regarding kidney stone, had developed right-sided flank pain had a CT scan of the abdomen showed 5 mm stone patient was seen by urologist was taken to the urology lab had a cystoscopy and stent was placed, stent will have to be removed in 2 weeks, patient also had a low-grade fever is suspicious for UTI and being treated with Rocephin, patient is deaf, able to read lips and communicate some. urine culture does not show any growth, blood culture is growing gram-negative bacilli, will continue Rocephin and follow-up on the sensitivity and identification, patient is clinically stable. Review of Systems Review of Systems: All systems reviewed & are unremarkable except as noted in HPI and below Exam Const: General: comfortable and no acute distress HENMT: General nose exam: Normal nares present Eyes: General: appearance normal, both eyes and all related structures Sclera: sclerae normal Neck: Neck: supple Resp: Effort & Inspection: normal respiratory effort Auscultation: clear to auscultation bilaterally Cardio: Rate: regular rate Rhythm: regular rhythm GI: Auscultation: normal bowel sounds Skin: General skin exam: normal color Neuro: Sensory Exam: normal sensation Extrem: General: normal to inspection Psych: Affect: Anxious affect present Objective Data Vital Signs Vital Signs: Vital Signs - 24 hr 09/24/19 14:00 09/24/19 18:00 09/24/19 22:
[2019-09-25 14:00] VITALS: BP 150/79; PULSE 79; RESP 18; TEMP 36.3; O2SAT 99
[2019-09-25 22:00] VITALS: BP 123/63; PULSE 76; RESP 18; TEMP 36.8; O2SAT 99
[2019-09-26 06:00] VITALS: BP 140/72; PULSE 80; RESP 16; TEMP 36.2; O2SAT 98
[2019-09-26 06:21] LABS: Hematocrit 35.9 % (37.0-47.0); Hemoglobin 12.3 g/dL (12.0-15.0); Mean Corpuscular HGB Conc 34.3 g/dl (32-36); Mean Corpuscular Hemoglobin 29.5 pg (26-34); Mean Corpuscular Volume 86.1 fl (80-100); Mean Platelet Volume 8.3 fl (7.4-10.4); Platelet Count Result 344 k/mm3 (150-375); Red Blood Count 4.17 M/mm3 (4.2-5.4); Red Cell Distribution Width 14.3 % (11.5-14.5); White Blood Count 7.5 K/mm3 (4.5-10.0)
[2019-09-26 06:44] LABS: Blood Urea Nitrogen 11 mg/dL (7-17); Calcium 8.6 mg/dL (8.4-10.2); Carbon Dioxide 23 mmol/L (22-30); Chloride 105 mmol/L (98-107); Estimated CRCL calculation 58 ml/min; Estimated Glomerular Filt Rate > 60; Glucose 92 mg/dL (65-105); Sodium 134 mmol/L (137-145)
[2019-09-26] MEDS: ROSUVASTATIN 10 MG TABLET PO (08:55)
[2019-09-26] MEDS: POTASSIUM CHLORIDE 10 MEQ TABLET.ER PO (08:55)
[2019-09-26] MEDS: MAGNESIUM OXIDE 400 MG TABLET PO (08:55)
[2019-09-26] MEDS: PHENYTOIN SODIUM 100 MG CAP PO ×3 (08:55→18:34)
--- NOTE | 2019-09-26 11:04 | WPDUROPN2 ---
Progress Note: A&P Assessment and Plan (1) Obstructive pyelonephritis: Code(s): N11.1 - Chronic obstructive pyelonephritis Status: Acute Assessment and Plan: Resolved. Would treated with two weeks of antibiotics. (2) Right ureteral stone: Code(s): N20.1 - Calculus of ureter Status: Acute Assessment and Plan: Needs stent removal, to be arranged by Dr. Lechuga. Subjective Subjective Date/Time Seen: 09/26/19 11:04 Interval history: Labs and vitals normal. Stone was extracted, stent was placed by Dr. Lechuga. Bcx GPC, Ucx negative. Review of Systems Review of Systems: All systems reviewed & are unremarkable except as noted in HPI and below Exam Const: General: comfortable and no acute distress Resp: Effort & Inspection: normal respiratory effort Auscultation: no wheezes Cardio: Rate: regular rate and not tachycardic Objective Data Vital Signs Vital Signs: Vital Signs - 24 hr 09/25/19 14:00 09/25/19 22:00 09/26/19 06:00 Temperature 36.3 C L 36.8 C 36.2 C L Pulse Rate 79 76 80 Respiratory Rate 18 18 16 Blood Pressure 150/79 H 123/63 140/72 Pulse Oximetry 99 99 98 Intake/Output Intake/Output: Intake & Output 09/23/19 09/24/19 09/25/19 09/26/19 23:59 23:59 23:59 23:59 Intake Total 1200 1870 2310 560 Output Total 1800 1600 1400 Balance 1200 70 710 -840 Meds/Results Medications: Active Medications Generic Name Dose Route Start Last Admin Trade Name Freq PRN Reason Stop Dose Admin Acetaminophen 650 mg 09/23/19 21:05 09/24/19 17:12 Tylenol Tablet PO 650 mg Q4H PRN Administration Mild Pain (1-3) or Fever Fentanyl Citrate 25 mcg 09/23/19 15:57 Sublimaze IV PUSH Q2M PRN Pain Hydromorphone HCl 0.25 mg 09/23/19 15:57 Dilaudid Inj IV PUSH Q5M PRN Pain Ceftriaxone Sodium/Dextrose 1 gm in 50 mls @ 100 mls/hr 09/24/19 18:00 09/25/19 19:08 Rocephin 1 Gm/D5w 50 Ml IVPB Infused QPM EILEEN Infusion Magnesium Oxide 400 mg 09/25/19 09:00 09/26/19 08:55 Mag-Ox PO 400 mg QAM EILEEN Administration Ondansetron HCl 4 mg 09/23/19 15:57 Zofran Inj IV PUSH ONCE PRN Nausea Phenobarbital 15 mg 09/24/19 09:00 09/26/19 08:55 Phenobarbital Tab PO 15 mg TID EILEEN Administration Phenytoin Sodium 100 mg 09/23/19 22:40 09/26/19 08:55 Dilantin Kapseals PO 100 mg TID EILEEN Administration Potassium Chloride 10 meq 09/24/19 09:00 09/26/19 08:55 Kcl Tablet PO 10 meq DAILY EILEEN Administration Rosuvastatin Calcium 10 mg 09/24/19 09:00 09/26/19 08:55 Crestor PO 10 mg DAILY EILEEN Administration Radiology Results: ITS Impressions Abdomen X-Ray 09/23/19 16:19 IMPRESSION: 1. Mild right hydronephrosis and hydroureter. Ureter Stent X-Ray 09/23/19 17:09 IMPRESSION: 1. Right internal ureteral stent placement. Please refer to real-time procedural findings for details. Labs Labs: Laboratory Results - last 24 hr 09/26/19 09/26/19 05:55 05:55 WBC 7.5 RBC 4.17 L Hgb 12.3 Hct 35.9 L MCV 86.1 MCH 29.5 MCHC 34.3 RDW 14.3 Plt Count 344 MPV 8.3 Sodium 134 L Potassium 4.0 Chloride 105 Carbon Dioxide 23 Anion Gap 10.0 BUN 11 Creatinine 0.60 L Estim Creat Clear Calc 58 Estimated GFR > 60 Glucose 92 Calcium 8.6 Quality VTE Prophylaxis VTE prophylaxis: mechanical ordered
--- NOTE | 2019-09-26 11:49 | PM.IMPN ---
Progress Note: A&P Assessment and Plan (1) Obstructive pyelonephritis: Code(s): N11.1 - Chronic obstructive pyelonephritis Status: Acute Assessment and Plan: please see operative report. Looks like the kidney stone was extracted per Urology and a stent was placed. The patient stated that she is not having any more discomfort. She has been placed on Rocephin. Urine cultures are pending. As well as blood cultures. 09/26/19 11:50 patient is 69-year-old female with no significant past medical history regarding kidney stone, had developed right-sided flank pain had a CT scan of the abdomen showed 5 mm stone patient was seen by urologist was taken to the urology lab had a cystoscopy and stent was placed, stent will have to be removed in 2 weeks, patient also had a low-grade fever is suspicious for UTI and being treated with Rocephin, patient is deaf, able to read lips and communicate some. urine culture does not show any growth, blood culture is growing gram-positive bacilli, will continue Rocephin and follow-up on the sensitivity and identification, patient is clinically stable. patient was seen by urologist today and further recommendation to follow (2) Hyperlipidemia: Qualifiers: Hyperlipidemia type: unspecified Qualified Code(s): E78.5 - Hyperlipidemia, unspecified Code(s): E78.5 - Hyperlipidemia, unspecified Status: Chronic Assessment and Plan: Continue with rosuvastatin. (3) Seizure disorder: Code(s): G40.909 - Epilepsy, unspecified, not intractable, without status epilepticus Status: Chronic Assessment and Plan: Continue with phenobarbital and phenytoin. (4) Acute hyponatremia: Code(s): E87.1 - Hypo-osmolality and hyponatremia Status: Acute Assessment and Plan: appears to be chronic. Patient was given IV fluids in the emergency room. She was also given lactated Ringer's in the procedure room. (5) Hypertension: Code(s): I10 - Essential (primary) hypertension Status: Chronic Assessment and Plan: I held her hydrochlorothiazide due to her low potassium. (6) Right kidney stone: Code(s): N20.0 - Calculus of kidney Status: Acute Assessment and Plan: Please see operative report. (7) Hypokalemia: Code(s): E87.6 - Hypokalemia Status: Acute Assessment and Plan: Patient is on daily potassium and I held her hydrochlorothiazide recheck basic metabolic panel in the a.m.. Subjective Date/time seen: 09/26/19 11:50 patient is 69-year-old female with no significant past medical history regarding kidney stone, had developed right-sided flank pain had a CT scan of the abdomen showed 5 mm stone patient was seen by urologist was taken to the urology lab had a cystoscopy and stent was placed, stent will have to be removed in 2 weeks, patient also had a low-grade fever is suspicious for UTI and being treated with Rocephin, patient is deaf, able to read lips and communicate some. urine culture does not show any growth, blood culture is growing gram-positive bacilli, will continue Rocephin and follow-up on the sensitivity and identification, patient is clinically stable. patient was seen by urologist today and further recommendation to follow Review of Systems Review of Systems: All systems reviewed & are unremarkable except as noted in HPI and below Exam Narrative: Exam Narrative: elderly frail Const: General: comfortable and no acute distress HENMT: General nose exam: Normal nares present Eyes: Sclera: sclerae normal Neck: Neck: supple Resp: Effort & Inspection: normal respiratory effort Auscultation: clear to auscultation bilaterally Cardio: Rate: regular rate Rhythm: regular rhythm GI: Auscultation: normal bowel sounds Skin: General skin exam: normal color Neuro: Sensory Exam: normal sensation Extrem: General: normal to inspection Psych: Affect: Anxious aff
[2019-09-26 14:00] VITALS: BP 134/57; PULSE 76; RESP 18; TEMP 36.4; O2SAT 99
[2019-09-26 22:00] VITALS: BP 139/57; PULSE 88; RESP 18; TEMP 36.6; O2SAT 99
[2019-09-27 06:00] VITALS: BP 129/65; PULSE 78; RESP 16; TEMP 36.7; O2SAT 98
[2019-09-27 06:21] LABS: Hematocrit 37.4 % (37.0-47.0); Hemoglobin 12.4 g/dL (12.0-15.0); Mean Corpuscular HGB Conc 33.2 g/dl (32-36); Mean Corpuscular Hemoglobin 28.9 pg (26-34); Mean Corpuscular Volume 87.2 fl (80-100); Mean Platelet Volume 8.3 fl (7.4-10.4); Platelet Count Result 392 k/mm3 (150-375); Red Blood Count 4.29 M/mm3 (4.2-5.4); Red Cell Distribution Width 14.5 % (11.5-14.5); White Blood Count 5.6 K/mm3 (4.5-10.0)
[2019-09-27 06:30] LABS: Anion Gap 10.9 mmol/L (7-16); Blood Urea Nitrogen 16 mg/dL (7-17); Calcium 8.8 mg/dL (8.4-10.2); Carbon Dioxide 25 mmol/L (22-30); Chloride 104 mmol/L (98-107); Estimated CRCL calculation 50 ml/min; Estimated Glomerular Filt Rate > 60; Glucose 89 mg/dL (65-105); Potassium 3.9 mmol/L (3.4-5.0); Sodium 136 mmol/L (137-145)
[2019-09-27] MEDS: ROSUVASTATIN 10 MG TABLET PO (08:25)
[2019-09-27] MEDS: MAGNESIUM OXIDE 400 MG TABLET PO (08:25)
[2019-09-27] MEDS: POTASSIUM CHLORIDE 10 MEQ TABLET.ER PO (08:25)
[2019-09-27] MEDS: PHENYTOIN SODIUM 100 MG CAP PO ×3 (08:25→18:24)
[2019-09-27] MEDS: polyethylene glycoL 3350 17 GM POWD.PACK PO (09:32)
[2019-09-27 14:00] VITALS: BP 128/68; PULSE 80; RESP 20; TEMP 36.4; O2SAT 98
--- NOTE | 2019-09-27 17:24 | PM.IMPN ---
Progress Note: A&P Assessment and Plan (1) Obstructive pyelonephritis: Code(s): N11.1 - Chronic obstructive pyelonephritis Status: Acute Assessment and Plan: please see operative report. Looks like the kidney stone was extracted per Urology and a stent was placed. The patient stated that she is not having any more discomfort. She has been placed on Rocephin. Urine cultures are pending. As well as blood cultures. 09/27/19 17:24 patient is 69-year-old female with no significant past medical history regarding kidney stone, had developed right-sided flank pain had a CT scan of the abdomen showed 5 mm stone patient was seen by urologist was taken to the urology lab had a cystoscopy and stent was placed, stent will have to be removed in 2 weeks, patient also had a low-grade fever is suspicious for UTI and being treated with Rocephin, patient is deaf, able to read lips and communicate some. urine culture does not show any growth, blood culture is growing gram-positive bacilli, will continue Rocephin and follow-up on the sensitivity and identification, which is still pending, once we know the sensitivity will plan oral medication and discharge. patient is clinically stable. patient was seen by urologist and further recommendation to follow (2) Hyperlipidemia: Qualifiers: Hyperlipidemia type: unspecified Qualified Code(s): E78.5 - Hyperlipidemia, unspecified Code(s): E78.5 - Hyperlipidemia, unspecified Status: Chronic Assessment and Plan: Continue with rosuvastatin. (3) Seizure disorder: Code(s): G40.909 - Epilepsy, unspecified, not intractable, without status epilepticus Status: Chronic Assessment and Plan: Continue with phenobarbital and phenytoin. (4) Acute hyponatremia: Code(s): E87.1 - Hypo-osmolality and hyponatremia Status: Acute Assessment and Plan: appears to be chronic. Patient was given IV fluids in the emergency room. She was also given lactated Ringer's in the procedure room. (5) Hypertension: Code(s): I10 - Essential (primary) hypertension Status: Chronic Assessment and Plan: I held her hydrochlorothiazide due to her low potassium. (6) Right kidney stone: Code(s): N20.0 - Calculus of kidney Status: Acute Assessment and Plan: Please see operative report. (7) Hypokalemia: Code(s): E87.6 - Hypokalemia Status: Acute Assessment and Plan: Patient is on daily potassium and I held her hydrochlorothiazide recheck basic metabolic panel in the a.m.. Subjective Date/time seen: 09/27/19 17:24 patient is 69-year-old female with no significant past medical history regarding kidney stone, had developed right-sided flank pain had a CT scan of the abdomen showed 5 mm stone patient was seen by urologist was taken to the urology lab had a cystoscopy and stent was placed, stent will have to be removed in 2 weeks, patient also had a low-grade fever is suspicious for UTI and being treated with Rocephin, patient is deaf, able to read lips and communicate some. urine culture does not show any growth, blood culture is growing gram-positive bacilli, will continue Rocephin and follow-up on the sensitivity and identification, which is still pending, once we know the sensitivity will plan oral medication and discharge. patient is clinically stable. patient was seen by urologist and further recommendation to follow Review of Systems Review of Systems: All systems reviewed & are unremarkable except as noted in HPI and below Exam Narrative: Exam Narrative: elderly frail Const: General: comfortable and no acute distress HENMT: General nose exam: Normal nares present Mouth: Yes moist mucous membranes Eyes: General: appearance normal, both eyes and all related structures Sclera: sclerae normal Neck: Neck: supple Resp: Effort & Inspection: normal respiratory effort Ausculta
[2019-09-27 22:00] VITALS: BP 119/68; PULSE 75; RESP 20; TEMP 36.9; O2SAT 99
[2019-09-28 06:00] VITALS: BP 127/68; PULSE 76; RESP 20; TEMP 36.8; O2SAT 99
[2019-09-28 06:23] LABS: Hematocrit 40.3 % (37.0-47.0); Hemoglobin 13.4 g/dL (12.0-15.0); Mean Corpuscular HGB Conc 33.3 g/dl (32-36); Mean Corpuscular Volume 87.2 fl (80-100); Mean Platelet Volume 8.1 fl (7.4-10.4); Platelet Count Result 429 k/mm3 (150-375); Red Blood Count 4.62 M/mm3 (4.2-5.4); Red Cell Distribution Width 14.4 % (11.5-14.5); White Blood Count 6.3 K/mm3 (4.5-10.0)
[2019-09-28] MEDS: polyethylene glycoL 3350 17 GM POWD.PACK PO (06:26)
[2019-09-28 06:40] LABS: Anion Gap 12.4 mmol/L (7-16); Blood Urea Nitrogen 16 mg/dL (7-17); Calcium 9.4 mg/dL (8.4-10.2); Carbon Dioxide 27 mmol/L (22-30); Chloride 103 mmol/L (98-107); Estimated CRCL calculation 58 ml/min; Estimated Glomerular Filt Rate > 60; Glucose 90 mg/dL (65-105); Potassium 4.4 mmol/L (3.4-5.0); Sodium 138 mmol/L (137-145)
[2019-09-28] MEDS: ROSUVASTATIN 10 MG TABLET PO (09:25)
[2019-09-28] MEDS: PHENYTOIN SODIUM 100 MG CAP PO (09:25)
[2019-09-28] MEDS: MAGNESIUM OXIDE 400 MG TABLET PO (09:25)
[2019-09-28] MEDS: POTASSIUM CHLORIDE 10 MEQ TABLET.ER PO (09:25)
--- NOTE | 2019-09-28 11:06 | P.CDI_ITS ---
CDI Query Clarification Request - Blood culture positive for corynebacterium Please clarify if there is a corresponding diagnosis for above finding: * Bacteremia * Sepsis * Contaminate * Other * Unable to determine <Genna Amaya RN - Last Filed: 09/28/19 11:09> Clarified Diagnosis (1) Sepsis: Code(s): A41.9 - Sepsis, unspecified organism <Genna Amaya RN - Last Filed: 09/28/19 11:09> Status: Acute <Genna Amaya RN - Last Filed: 09/28/19 11:09> Assessment and Plan: patient with septic, upon arrival patient had fever, leuckocytosis tachycardia tachypnea blood culture the positive Corynebacterium <Mariel Scruggs MD - Last Filed: 10/13/19 18:25>
[2019-09-28 12:59] VITALS: BP 128/69; PULSE 75; RESP 18; TEMP 36.4; O2SAT 100
--- NOTE | 2019-09-28 13:57 | PM.DS ---
DS: Admitting Diagnosis Admitting Diagnosis Admitting Diagnosis: Fever, unspecified DS: Discharge Diagnosis Discharge Diagnosis (1) Obstructive pyelonephritis: Code(s): N11.1 - Chronic obstructive pyelonephritis Status: Acute Assessment and Plan: (1) Obstructive pyelonephritis: Code(s): N11.1 - Chronic obstructive pyelonephritis Status: Acute Assessment and Plan: please see operative report. Looks like the kidney stone was extracted per Urology and a stent was placed. The patient stated that she is not having any more discomfort. She has been placed on Rocephin. Urine cultures are pending. As well as blood cultures. 09/27/19 17:24 patient is 69-year-old female with no significant past medical history regarding kidney stone, had developed right-sided flank pain had a CT scan of the abdomen showed 5 mm stone patient was seen by urologist was taken to the urology lab had a cystoscopy and stent was placed, stent will have to be removed in 2 weeks, patient also had a low-grade fever is suspicious for UTI and being treated with Rocephin, patient is deaf, able to read lips and communicate some. urine culture does not show any growth, blood culture is growing gram-positive bacilli, will continue Rocephin and follow-up on the sensitivity and identification, which is still pending, once we know the sensitivity will plan oral medication and discharge. patient is clinically stable. patient was seen by urologist and further recommendation to follow (2) Hyperlipidemia: Qualifiers: Hyperlipidemia type: unspecified Qualified Code(s): E78.5 - Hyperlipidemia, unspecified Code(s): E78.5 - Hyperlipidemia, unspecified Status: Chronic Assessment and Plan: (2) Hyperlipidemia: Qualifiers: Hyperlipidemia type: unspecified Qualified Code(s): E78.5 - Hyperlipidemia, unspecified Code(s): E78.5 - Hyperlipidemia, unspecified Status: Chronic Assessment and Plan: Continue with rosuvastatin. (3) Seizure disorder: Code(s): G40.909 - Epilepsy, unspecified, not intractable, without status epilepticus Status: Chronic Assessment and Plan: (3) Seizure disorder: Code(s): G40.909 - Epilepsy, unspecified, not intractable, without status epilepticus Status: Chronic Assessment and Plan: Continue with phenobarbital and phenytoin. (4) Acute hyponatremia: Code(s): E87.1 - Hypo-osmolality and hyponatremia Status: Acute Assessment and Plan: (4) Acute hyponatremia: Code(s): E87.1 - Hypo-osmolality and hyponatremia Status: Acute Assessment and Plan: appears to be chronic. Patient was given IV fluids in the emergency room. She was also given lactated Ringer's in the procedure room. (5) Right ureteral stone: Code(s): N20.1 - Calculus of ureter Status: Acute Assessment and Plan: please see the operative report DS: Summary Hospital Course Reason for hospitalization: Chief complaint: KIDNEY STONE Narrative: Pari Trent is a 69 year old female Who is deaf. The patient was just admitted here the 18 of this month. She thought that she possibly had covid 19 she was found have a fever of 103.1 at that time. Patient was found to be negative for covid 19. Her daughter also tested negative at that time. She does read lips and she is able to read the information. The patient stated that she had a history of back surgery in the past and that she has chronic back pain. The patient was having some back pain and she with her primary care doctor who ordered a CT scan which shows a right-sided kidney stone that was 5 mm. The patient also had a subjective fever and was thought to have pyelonephritis. She was started on Rocephin. Urology has been consulted. She was found to have an obstructing right ureteral stone. No prior history of kidney stones. The patient
== END 2019-09-28 16:30 | disposition home or self-care (01) | DRG 854 ==
LOC: ANHED 15:52 → ANHSURGERY 15:52 → ANH3MEDSUR 18:57
PROVIDERS: Nurse Practitioner; Urology; Admitting Provider Family Medicine; Emergency Provider Emergency Medicine; PCP Family Medicine Adolescent Medicine; Visit Provider Family Medicine
PROC: 0TC68ZZ Extirpation of Matter from Right Ureter, Via Natural or Artificial Opening Endoscopic (ICD-10-PCS; CPT 52352; principal; 2019-09-23 16:00)
DX: A41.59 Other Gram-negative sepsis (principal); N13.6 Pyonephrosis; E87.1 Hypo-osmolality and hyponatremia; N20.0 Calculus of kidney; E78.5 Hyperlipidemia, unspecified; G40.909 Epilepsy, unspecified, not intractable, without status epilepticus; E83.42 Hypomagnesemia; E87.6 Hypokalemia; I10 Essential (primary) hypertension; H91.93 Unspecified hearing loss, bilateral; Z98.42 Cataract extraction status, left eye; Z98.41 Cataract extraction status, right eye
CPT/HCPCS: 36415; 74018; 80048; 80053; 81001; 82365; 83605; 83735; 84443; 85025; 85027; 87040; 87076; 87086; 88300; 96361; 96375; 96376; 99285; A9270; C1769; C2617; G0378; J0131; J0696; J2250; J2704; J7030; J7120

== ENCOUNTER → 2020-09-11 13:47 | Outpatient (CLI) | payer MEDICARE, SELFPAY ==
--- NOTE | ~2020-09-11 | MM_ITS ---
EXAMINATION: MM screening [facility] BI w [facility] HISTORY: Screening TECHNIQUE: Craniocaudal and mediolateral oblique 3-D tomosynthesis images were obtained and synthetic 2-D images were generated. CAD analysis was submitted and interpreted. COMPARISON: Comparison to multiple prior studies sequentially, with oldest reviewed study dated 06/2013. BREAST PARENCHYMAL COMPOSITION: The breasts are heterogenously dense, which may obscure small masses FINDINGS: There is no evidence of suspicious mass, calcification, or architectural distortion to sugg est malignancy in either breast. There has been no suspicious interval change. IMPRESSION: 1. No mammographic evidence of malignancy. 2. Recommend routine screening mammography in one year. BI-RADS Category 1: Negative Reviewed, dictated and finalized at location A.
== END ==
PROVIDERS: PCP Family Medicine Adolescent Medicine; Visit Provider Family Medicine Adolescent Medicine
DX: Z12.31 Encounter for screening mammogram for malignant neoplasm of breast (principal)
CPT/HCPCS: 77063; 77067

== ENCOUNTER 2021-06-30 13:17 | Emergency (ER) | payer MEDICARE, SELFPAY ==
--- NOTE | 2021-06-30 13:21 | ED.UPPEXIN ---
HPI - Extremity Injury (Upper) General Chief Complaint: Extremity Injury, Upper Stated Complaint: SWOLLEN RIGHT HAND Time Seen by Provider: 06/30/21 13:30 Source: patient Mode of arrival: ambulatory Limitations: no limitations History of Present Illness HPI narrative: Ms. Trent is a 71-year-old female patient presenting to the clinic today with complaint of right hand swelling without injury. She reports that the swelling began approximately 3 days ago. States that she has been taking some Aleve and applying ice and this has helped the swelling go down as well some of the pain. She denies any history of gout. States that she has arthritis throughout her body. Related Data Home Medications Medication Instructions Recorded Confirmed potassium chloride [Klor-Con M10] 10 meq PO DAILY 09/11/19 04/24/21 phenytoin sodium extended 100 mg 100 mg PO BID cap 04/23/21 04/24/21 capsule hydrochlorothiazide 06/30/21 Allergies Allergy/AdvReac Type Severity Reaction Status Date / Time diclofenac AdvReac Severe seizure Verified 06/30/21 13:36 atorvastatin [From Lipitor] AdvReac Unknown unknown Verified 04/24/21 13:32 cephalexin [From Keflex] AdvReac Unknown unknown Verified 04/24/21 13:32 prednisone AdvReac Other Verified 06/30/21 13:36 Review of Systems Review of Systems: Pertinent positives per HPI. Patient denies any fever, chills, rash, headache, visual changes, dizziness, cough, runny nose, sore throat, shortness of breath, chest pain, palpitations, nausea, vomiting, diarrhea, constipation, abdominal pain, or any urinary issues. PMFSH Past Medical History Medical History Acute hypokalemia Acute UTI Fever Hyperlipidemia Hypertension Hypokalemia Hypomagnesemia Right ureteral stone Seizure disorder Sepsis Suspected 2019 novel coronavirus infection she tested negative Surgical History Surgical History H/O bilateral cataract extraction History of back surgery Hx of cervical polypectomy Hx of hysterectomy Hx of tubal ligation Hx of vitrectomy Family History Family History Mother Cancer of female organs Carcinoma of colon Father Heart disease Social History Social History Social History: the patient stated that she has 1 daughter and she is . She said that she worked for the [employer] for approximately 35 years and she is retired now. She is a lifelong nonsmoker. She said she uses socially drink but she does not anymore. She has 1 daughter and states that she does not have any durable power attorney recruiter for healthcare. She does tell me that she is a full code. Patient tells me she does not need a durable power attorney recruiter for healthcare. I explained to her that this is for medical care and she does not have anybody that is durable power attorney recruiter for healthcare. Her ex- is . Her daughter is the nearest relative. Smoking status: Never smoker Second hand tobacco smoke exposure: No Alcohol intake: never Substance use: never Gender identity (if verbalized by the patient): Female Spiritual care concerns: No Comments At the time of my signature, I reviewed and agree with the nursing past medical, surgical, social, and family history. There is no relevant family history pertinent to the patient complaint. Exam Narrative: General: Well-developed, well nourished, in no apparent distress Head: Normocephalic, atraumatic. Cardio: Regular rate and rhythm, s1 and s2 normal, no murmur appreciated. Resp: Clear to auscultation bilaterally, no rhonchi, rales, wheezing or rubs. Musculoskeletal: No deformity, mild redness and swelling noted to the dorsal right hand, tender to palpation over the dorsal right hand, pain with flexion and
[2021-06-30 13:27] VITALS: BP 144/80; PULSE 84; RESP 16; TEMP 37.4; O2SAT 99
== END 2021-06-30 13:51 | disposition home or self-care (01) ==
PROVIDERS: Emergency Provider Nurse Practitioner Family; PCP Family Medicine Adolescent Medicine
DX: M79.89 Other specified soft tissue disorders (principal); E78.5 Hyperlipidemia, unspecified; I10 Essential (primary) hypertension
CPT/HCPCS: 99213; G0463

== ENCOUNTER 2021-08-08 14:36 | Emergency (ER) | payer MEDICARE, SELFPAY | END 2021-08-08 14:37 | disposition left against medical advice (07) | PROVIDERS: Emergency Provider Nurse Practitioner Family | DX: Z53.21 Procedure and treatment not carried out due to patient leaving prior to being seen by health care provider (principal) | CPT/HCPCS: 99199 ==

== ENCOUNTER → 2021-08-08 14:47 | Outpatient (CLI) | payer MEDICARE, SELFPAY ==
--- NOTE | ~2021-08-08 | XR_ITS ---
EXAM: XR lumbar spine 2-3V DATE: 08/08/2021 15:09 HISTORY: low back pain after fall 5 days ago . COMPARISON: None available. FINDINGS: Decreased mineralization. Posterior L5-S1 fusion with intact hardware. Interbody device in good position. 5 nonrib-bearing lumbar-type vertebral bodies. Pedicles intact. 3 mm retrolisthesis of L4 on L5, unchanged. Stable mild anterior wedge deformity of L4. Mild anterior wedge deformities of multiple thoracic and lumbar vertebral bodies with osteoporotic type endplate deformities, grossly st able given interval change in positioning. Multilevel disc space narrowing and marginal osteophytosis , most severe in the lower lumbar spine. Multilevel facet sclerosis. No fracture or dislocation. IMPRESSION: Posterior L5-S1 fusion, without hardware related complication. Stable grade 1 listhesis o f L4 on L5. Stable moderate wedge compression deformity of L4. No acute fracture or traumatic malalig nment in the lumbar spine. Reviewed, dictated and finalized at location K. IMPRESSION: Posterior L5-S1 fusion, without hardware related complication. Stab le grade 1 listhesis of L4 on L5. Stable moderate wedge compression deformity o f L4. No acute fracture or traumatic malalignment in the lumbar spine.
== END ==
PROVIDERS: PCP Family Medicine Adolescent Medicine; Visit Provider Family Medicine Adolescent Medicine
DX: M54.2 Cervicalgia (principal); Z98.1 Arthrodesis status
CPT/HCPCS: 72100

== ENCOUNTER → 2021-11-13 13:10 | Outpatient (CLI) | payer MEDICARE, SELFPAY ==
--- NOTE | ~2021-11-13 | XR_ITS ---
XR hip LT min 2V 11/13/2021 13:25 Indication: Left hip pain Procedure: 2 views left hip Comparison: No prior studies for comparison. Findings: Moderate osteoarthritis of the left hip. No fracture or traumatic malalignment. There are s urgical changes consistent with fusion at L5-S1. No significant soft tissue abnormality. No foreign b althea. Impression: 1: Moderate osteoarthritis of the left hip. Reviewed, dictated and finalized at location A. Impression: 1: Moderate osteoarthritis of the left hip.
== END ==
PROVIDERS: PCP Family Medicine Adolescent Medicine; Visit Provider Family Medicine Adolescent Medicine
DX: M16.12 Unilateral primary osteoarthritis, left hip (principal)
CPT/HCPCS: 73502

== ENCOUNTER → 2021-12-24 15:24 | Outpatient (CLI) | payer MEDICARE, SELFPAY ==
--- NOTE | ~2021-12-24 | MM_ITS ---
EXAMINATION: MM screening lance BI w hailey HISTORY: Screening TECHNIQUE: Craniocaudal and mediolateral oblique 3-D tomosynthesis images were obtained and synthetic 2-D images were generated. CAD analysis was submitted and interpreted. COMPARISON: Comparison to multiple prior studies sequentially, with oldest reviewed study dated 05/10. BREAST PARENCHYMAL COMPOSITION: The breasts are heterogeneously dense, which may obscure small masses FINDINGS: There is a focal asymmetry in the upper outer quadrant which appear slightly more prominent than on prior examinations. The right breast is stable without evidence for malignancy. There are be nign-appearing bilateral breast calcifications. IMPRESSION: 1. Left breast asymmetry, upper outer quadrant. 2. Additional mammographic views and possible breast ultrasound are recommended. BI-RADS Category 0: Incomplete: Needs additional imaging evaluation. Reviewed, dictated and finalized at location A. IMPRESSION: 1. Left breast asymmetry, upper outer quadrant. 2. Additional mammographic views and possible breast ultrasound are recommended . BI-RADS Category 0: Incomplete: Needs additional imaging evaluation.
== END ==
PROVIDERS: PCP Family Medicine Adolescent Medicine; Visit Provider Family Medicine Adolescent Medicine
DX: Z12.31 Encounter for screening mammogram for malignant neoplasm of breast (principal); R92.8 Other abnormal and inconclusive findings on diagnostic imaging of breast
CPT/HCPCS: 77063; 77067

== ENCOUNTER → 2022-01-14 07:43 | Outpatient (CLI) | payer MEDICARE, SELFPAY ==
--- NOTE | ~2022-01-14 | MMUS_ITS ---
EXAMINATION: MM diagnostic lance LT w hailey, US breast LT limited HISTORY: Upper outer quadrant left breast asymmetry reported on 12/24/2021 screening mammogram TECHNIQUE: Additional 3-D tomosynthesis images of the left breast were performed and synthetic 2-D im ages were generated. CAD analysis was submitted and interpreted. High resolution upper outer quadrant and lower outer quadrant left breast ultrasound was performed. COMPARISON: 12/24/2021, 09/11/2020, 11/19/2018 bilateral screening mammogram examinations FINDINGS: MAMMOGRAPHIC FINDINGS: No definite reproducible mass or architectural distortion on orthogonal views submitted. ULTRASOUND: No suspicious mass or shadowing is evident. No cyst is identified. IMPRESSION: 1. No mammographic evidence of malignancy is detected 2. Considering the subtle nature of the finding described on the 12/24/2021 screening mammogram, foll ow-up mammography and ultrasound in 6 months is recommended BI-RADS category 3, probably benign findings. Reviewed, dictated and finalized at location A. ESSOR OF THEOLOGY IMPRESSION: 1. No mammographic evidence of malignancy is detected 2. Considering the subtle nature of the finding described on the 12/24/2021 scr eening mammogram, follow-up mammography and ultrasound in 6 months is recommend ed BI-RADS category 3, probably benign findings.
== END ==
PROVIDERS: PCP Family Medicine Adolescent Medicine; Visit Provider Family Medicine Adolescent Medicine
DX: R92.8 Other abnormal and inconclusive findings on diagnostic imaging of breast (principal)
CPT/HCPCS: 76642; 77061; 77065; G0279

== ENCOUNTER 2022-08-12 01:28 | Day surgery (SDC) | payer MEDICARE, SELFPAY ==
[2022-08-05 14:36] VITALS: BMI 26.2
[2022-08-12 06:23] VITALS: BP 114/72; PULSE 84; RESP 18; TEMP 36.2; O2SAT 97
[2022-08-12] MEDS: LACTATED RINGERS 1,000 ML 150 ML IV CONT (06:39)
--- NOTE | 2022-08-12 07:15 | PM.HPGS ---
History of Present Illness History of Present Illness Consent: Risks, benefits, and alternatives have been discussed and questions answered. Patient agrees to proceed with procedure. Chief complaint: family hx colon ca Narrative: Pari Trent is a 72 year old female Presents for screening colonoscopy. Patient's mother with colon cancer. Patient has otherwise been in general good health. Patient is deaf history is obtained with the assistance of her daughter who helps sign for her. Patient denies any abdominal pain or bowel habits are normal. She has had several previous colonoscopies. Most recent colonoscopy 2018. Patient reports bowel habits are normal at this time. Review of Systems Review of Systems: Review of systems noncontributory. [facility] Past Medical History Medical History (Updated 08/12/22 @ 07:17 by Leroy Gilliland MD) Acute hypokalemia Acute UTI Fever Hypertension Hypokalemia Hypomagnesemia Obstructive pyelonephritis Right kidney stone Obstructing Right ureteral stone Seizure disorder Sepsis Surgical History Surgical History H/O bilateral cataract extraction History of back surgery Hx of cervical polypectomy Hx of hysterectomy Hx of tubal ligation Hx of vitrectomy Family History Family History Mother Cancer of female organs Carcinoma of colon Father Heart disease Social History Social History Social History: the patient stated that she has 1 daughter and she is . She said that she worked for the [employer] for approximately 35 years and she is retired now. She is a lifelong nonsmoker. She said she uses socially drink but she does not anymore. She has 1 daughter and states that she does not have any durable power workers compensation attorney for healthcare. She does tell me that she is a full code. Patient tells me she does not need a durable power workers compensation attorney for healthcare. I explained to her that this is for medical care and she does not have anybody that is durable power workers compensation attorney for healthcare. Her ex- is . Her daughter is the nearest relative. Smoking status: Never smoker Second hand tobacco smoke exposure: No Alcohol intake: never Substance use: never Substance use type: does not use Living arrangements: alone Occupation/Education: retired Gender identity (if verbalized by the patient): Female Spiritual care concerns: No Agree to blood products: Yes Meds Home Medications and Allergies Home Medications Medication Instructions Recorded Confirmed Type potassium chloride 10 mEq 10 meq PO DAILY #90 tabs 04/11/22 08/05/22 Rx tablet,extended release(part/cryst) (Klor-Con M) phenobarbital 32.4 mg tablet See Rx Instructions PO .COMPLEX 05/16/22 08/12/22 Rx #135 tabs gabapentin 300 mg capsule 300 mg PO TID #270 caps 05/20/22 08/05/22 Rx sodium,potassium,mag sulfates 17.5 See Rx Instructions PO .COMPLEX 06/21/22 08/05/22 Rx gram-3.13 gram-1.6 gram oral soln #354 mL (Suprep Bowel Prep Kit) phenytoin sodium extended 100 mg 100 mg PO BID #180 caps 07/09/22 08/12/22 Rx capsule rosuvastatin 10 mg tablet 10 mg PO DAILY #90 tabs 07/09/22 08/05/22 Rx calcium carbonate 600 mg-vitamin 1 tablet PO DAILY 08/05/22 08/05/22 History D3 5 mcg (200 unit) tablet polyethylene glycol 3350 17 gram 17 g PO DAILY 08/05/22 08/05/22 History oral powder packet (Miralax) Allergies Allergy/AdvReac Type Severity Reaction Status Date / Time diclofenac AdvReac Severe seizure Verified 08/12/22 06:17 atorvastatin [From Lipitor] AdvReac Unknown unknown Verified 08/12/22 06:17 cephalexin [From Keflex] AdvReac Unknown unknown Verified 08/12/22 06:17 prednisone AdvReac Other Verified 08/12/22 06:17 Vital Signs Vital Signs - 24 hr 08/12/22 06:23 Temperature 97.1 F
--- NOTE | 2022-08-12 07:26 | WPDANESEPPF ---
Anes - Initial Pre Proc Eval Procedure: Operation Date: 08/12/22 07:30 Proposed Procedures p Colonoscopy - Leroy Gilliland MD Date/Time: 08/12/22 07:26 Surgeon: Leroy Gilliland MD Pre Op Diagnosis: family hx colon ca Patient Data Age: 72 Gender: F Height: 1.57 m Weight: 65.6 kg Last Vital Signs Temp 97.1 F L 08/12/22 06:23 Pulse 84 08/12/22 06:23 Resp 18 08/12/22 06:23 BP 114/72 08/12/22 06:23 Pulse Ox 97 08/12/22 06:23 O2 Del Method Room Air 08/12/22 06:23 Allergies Allergy/AdvReac Type Severity Reaction Status Date / Time diclofenac AdvReac Severe seizure Verified 08/12/22 06:17 atorvastatin [From Lipitor] AdvReac Unknown unknown Verified 08/12/22 06:17 cephalexin [From Keflex] AdvReac Unknown unknown Verified 08/12/22 06:17 prednisone AdvReac Other Verified 08/12/22 06:17 Home Medications Medication Instructions Recorded Confirmed Type potassium chloride 10 mEq 10 meq PO DAILY #90 tabs 04/11/22 08/05/22 Rx tablet,extended release(part/cryst) (Klor-Con M) phenobarbital 32.4 mg tablet See Rx Instructions PO .COMPLEX 05/16/22 08/12/22 Rx #135 tabs gabapentin 300 mg capsule 300 mg PO TID #270 caps 05/20/22 08/05/22 Rx sodium,potassium,mag sulfates 17.5 See Rx Instructions PO .COMPLEX 06/21/22 08/05/22 Rx gram-3.13 gram-1.6 gram oral soln #354 mL (Suprep Bowel Prep Kit) phenytoin sodium extended 100 mg 100 mg PO BID #180 caps 07/09/22 08/12/22 Rx capsule rosuvastatin 10 mg tablet 10 mg PO DAILY #90 tabs 07/09/22 08/05/22 Rx calcium carbonate 600 mg-vitamin 1 tablet PO DAILY 08/05/22 08/05/22 History D3 5 mcg (200 unit) tablet polyethylene glycol 3350 17 gram 17 g PO DAILY 08/05/22 08/05/22 History oral powder packet (Miralax) Patient hx anesthesia problems: none Family hx anesthesia problems: none Results Review: All pre-operative results and documents have been reviewed as part of the pre-operative evaluation. [facility] Past Medical History Medical History (Updated 08/12/22 @ 07:17 by Leroy Gilliland MD) Acute hypokalemia Acute UTI Fever Hypertension Hypokalemia Hypomagnesemia Obstructive pyelonephritis Right kidney stone Obstructing Right ureteral stone Seizure disorder Sepsis Surgical History Surgical History H/O bilateral cataract extraction History of back surgery Hx of cervical polypectomy Hx of hysterectomy Hx of tubal ligation Hx of vitrectomy Family History Family History Mother Cancer of female organs Carcinoma of colon Father Heart disease Social History Social History Social History: the patient stated that she has 1 daughter and she is . She said that she worked for the [employer] for approximately 35 years and she is retired now. She is a lifelong nonsmoker. She said she uses socially drink but she does not anymore. She has 1 daughter and states that she does not have any durable power patent prosecution attorney for healthcare. She does tell me that she is a full code. Patient tells me she does not need a durable power patent prosecution attorney for healthcare. I explained to her that this is for medical care and she does not have anybody that is durable power patent prosecution attorney for healthcare. Her ex- is . Her daughter is the nearest relative. Smoking status: Never smoker Second hand tobacco smoke exposure: No Alcohol intake: never Substance use: never Substance use type: does not use Living arrangements: alone Occupation/Education: retired Gender identity (if verbalized by the patient): Female Spiritual care concerns: No Agree to blood products: Yes Anes - Eval Final PreProcedure Day of Procedure 08/12/22 07:26 Patient weight: normal Heart: regular rate and rhythm Lungs: clear to auscultation Airway: Mallampati scale class I
[2022-08-12 07:50] VITALS: BP 101/49; PULSE 71; RESP 15; O2SAT 99
[2022-08-12 08:00] VITALS: BP 118/55; PULSE 64; RESP 14; O2SAT 99
[2022-08-12 08:10] VITALS: BP 109/60; PULSE 62; RESP 14; O2SAT 98
== END 2022-08-12 08:19 | disposition home or self-care (01) ==
PROVIDERS: PCP Family Medicine Adolescent Medicine; Visit Provider Internal Medicine Gastroenterology
PROC: 0DJD8ZZ Inspection of Lower Intestinal Tract, Via Natural or Artificial Opening Endoscopic (ICD-10-PCS; CPT 45378; principal; 2022-08-12 07:30)
DX: Z12.11 Encounter for screening for malignant neoplasm of colon (principal); K64.8 Other hemorrhoids; Z80.0 Family history of malignant neoplasm of digestive organs; I10 Essential (primary) hypertension; G40.909 Epilepsy, unspecified, not intractable, without status epilepticus
CPT/HCPCS: G0105; J2704; J7120

== ENCOUNTER 2022-11-06 19:16 | Emergency (ER) | payer MEDICARE, SELFPAY ==
--- NOTE | ~2022-11-06 | XR_ITS ---
EXAMINATION: XR foot RT min 3V DATE: 11/06/2022 20:09 INDICATION: Right foot pain TECHNIQUE: Dorsoplantar, lateral, and 2 oblique views of the right foot were obtained. COMPARISON: None. FINDINGS: Bone alignment is normal. There is no fracture. There is moderate osteoarthritis of multipl e interphalangeal joints. IMPRESSION: 1. No acute osseous abnormality. Reviewed, dictated and finalized at location F.
[2022-11-06 19:33] VITALS: BP 154/75; PULSE 87; RESP 16; TEMP 37.3; O2SAT 99
[2022-11-06 19:42] VITALS: BP 154/75; PULSE 87; RESP 16; TEMP 37.3; O2SAT 99
--- NOTE | 2022-11-06 19:43 | ED.LOWEXIN ---
HPI - Extremity Injury (Lower) General Chief Complaint: Extremity Injury, Lower Stated Complaint: Right Foot Pain Time Seen by Provider: 11/06/22 19:43 Source: patient Mode of arrival: ambulatory Limitations: no limitations History of Present Illness HPI Narrative: 72-year-old female presents with daughter with complaint of right foot pain and swelling for the past several weeks that his increased over the last 3 days. Patient now walking with a limp due to right foot pain. Patient reports that she has been walking on the outside of her right foot for several months due to left hip pain. Daughter reports that patient's right foot feels warm to touch. Patient taking ibuprofen without relief of pain. Has appointment with primary care physician tomorrow morning but daughter reports brought patient to night due to amount of pain that she is having. All systems reviewed and negative except as noted above. Related Data Home Medications Medication Instructions Recorded Confirmed calcium carbonate 600 mg-vitamin 1 tablet PO DAILY 08/05/22 11/07/22 D3 5 mcg (200 unit) tablet polyethylene glycol 3350 17 gram 17 g PO DAILY 08/05/22 11/07/22 oral powder packet (Miralax) Allergies Allergy/AdvReac Type Severity Reaction Status Date / Time diclofenac AdvReac Severe seizure Verified 11/07/22 09:41 atorvastatin [From Lipitor] AdvReac Unknown unknown Verified 11/07/22 09:41 cephalexin [From Keflex] AdvReac Unknown unknown Verified 11/07/22 09:41 prednisone AdvReac Other Verified 11/07/22 09:41 Review of Systems Review of Systems: CONSTITUTIONAL: Denies fever, chills, or sweats. EYES: Denies visual changes, redness, or discharge. ENT: Denies rhinorrhea, congestion, sore throat, or otalgia. CARDIOVASCULAR: Denies chest pain, palpitations, or edema. RESPIRATORY: Denies cough or dyspnea. GASTROINTESTINAL: Denies abdominal pain, nausea, vomiting, or diarrhea. GENITOURINARY: Denies dysuria or hematuria. SKIN: Denies rash or itching. MUSCULOSKELETAL: Denies back pain. Reports pain to R foot with swelling and warm to touch. NEUROLOGIC: Denies headache, numbness, or weakness. PSYCHIATRIC: Denies anxiety or depression. All other systems reviewed are negative, except as documented in HPI. [facility] Past Medical History Medical History (Updated 09/14/23 @ 10:02 by Jorge Luis Mazariegos MD) Acute hypokalemia Acute UTI Fever Hypertension Hypokalemia Hypomagnesemia Obstructive pyelonephritis Right kidney stone Obstructing Right ureteral stone Seizure disorder Sepsis Surgical History Surgical History H/O bilateral cataract extraction History of back surgery Hx of cervical polypectomy Hx of hysterectomy Hx of tubal ligation Hx of vitrectomy Family History Family History Mother Cancer of female organs Carcinoma of colon Father Heart disease Social History Social History (Updated 11/07/22 @ 09:42 by Jayln Younger [facility]) Social History: the patient stated that she has 1 daughter and she is . She said that she worked for the [employer] for approximately 35 years and she is retired now. She is a lifelong nonsmoker. She said she uses socially drink but she does not anymore. She has 1 daughter and states that she does not have any durable power photovoltaic solar cell designer for healthcare. She does tell me that she is a full code. Patient tells me she does not need a durable power photovoltaic solar cell designer for healthcare. I explained to her that this is for medical care and she does not have anybody that is durable power photovoltaic solar cell designer for healthcare. Her ex- is . Her daughter is the nearest relative. Smoking status: Never smoker Second hand tobacco smoke exposure: No Alcohol intake: never Substance use: never Substance use type: does not use Lack of Transportation: No Lack of Food: Never True Current Lenka
== END 2022-11-06 20:36 | disposition home or self-care (01) ==
PROVIDERS: Emergency Provider Nurse Practitioner Family; PCP Family Medicine Adolescent Medicine
DX: M19.071 Primary osteoarthritis, right ankle and foot (principal); M77.8 Other enthesopathies, not elsewhere classified; I10 Essential (primary) hypertension; G40.909 Epilepsy, unspecified, not intractable, without status epilepticus
CPT/HCPCS: 73630; 99213; G0463

== ENCOUNTER → 2023-04-14 10:13 | Outpatient (CLI) | payer MEDICARE, SELFPAY ==
--- NOTE | ~2023-04-14 | MM_ITS ---
EXAMINATION: MM screening lance BI w hailey HISTORY: Screening TECHNIQUE: Craniocaudal and mediolateral oblique 3-D tomosynthesis images were obtained and synthetic 2-D images were generated. CAD analysis was submitted and interpreted. COMPARISON: Comparison to multiple prior studies sequentially, with oldest reviewed study dated 10/08. BREAST PARENCHYMAL COMPOSITION: Dense: The breasts are heterogeneously dense, which may obscure small masses FINDINGS: The right breast is stable without evidence for malignancy. There are developing nodular as ymmetries centered in the upper outer quadrant of the left breast, middle third. IMPRESSION: 1. Developing left breast asymmetries, upper outer quadrant, middle third. 2. Additional mammographic views and possible breast ultrasound are recommended. BI-RADS Category 0: Incomplete: Needs additional imaging evaluation. Reviewed, dictated and finalized at location A. E WORKER IMPRESSION: 1. Developing left breast asymmetries, upper outer quadrant, middle third. 2. Additional mammographic views and possible breast ultrasound are recommended . BI-RADS Category 0: Incomplete: Needs additional imaging evaluation.
== END ==
PROVIDERS: PCP Family Medicine Adolescent Medicine; Visit Provider Family Medicine Adolescent Medicine
DX: Z12.31 Encounter for screening mammogram for malignant neoplasm of breast (principal); R92.8 Other abnormal and inconclusive findings on diagnostic imaging of breast
CPT/HCPCS: 77063; 77067

== ENCOUNTER 2023-05-08 08:30 | Outpatient (CLI) | payer MEDICARE, SELFPAY ==
--- NOTE | ~2023-05-08 | MMUS_ITS ---
EXAMINATION: MM diagnostic lance LT w hailey, US breast LT limited HISTORY: Developing left breast asymmetries reported in the upper outer quadrant on December 13, 2023 screening mammogram examination TECHNIQUE: Additional 3-D tomosynthesis images of , breast were performed and synthetic 2-D images we re generated. CAD analysis was submitted and interpreted. High resolution upper outer and lower-outer quadrant left breast ultrasound was performed. COMPARISON: April 14, 2023 bilateral screening mammogram FINDINGS: MAMMOGRAPHIC FINDINGS: No suspicious reproducible mass or architectural distortion is evident. The heterogeneously dense str elias however may obscure masses. Ultrasound examination was performed. ULTRASOUND: No suspicious mass, shadowing, cyst or other significant sonographic abnormality is detected in the u pper outer or lower outer quadrants of the left breast. IMPRESSION: 1. No evidence of malignancy 2. Routine annual mammographic screening is recommended. BI-RADS Category 1: Negative Reviewed, dictated and finalized at location A. IMPRESSION: 1. No evidence of malignancy 2. Routine annual mammographic screening is recommended. BI-RADS Category 1: Negative
== END 2023-05-08 08:31 ==
LOC: MICIMG 08:31
PROVIDERS: PCP Family Medicine Adolescent Medicine; Visit Provider Family Medicine Adolescent Medicine
DX: R92.8 Other abnormal and inconclusive findings on diagnostic imaging of breast (principal)
CPT/HCPCS: 76642; 77061; 77065; G0279

== ENCOUNTER 2024-06-07 10:31 | Outpatient (CLI) | payer MEDICARE, SELFPAY ==
--- NOTE | ~2024-06-07 | MM_ITS ---
EXAMINATION: MM screening lance BI w hailey HISTORY: Screening TECHNIQUE: Craniocaudal and mediolateral oblique 3-D tomosynthesis images were obtained and synthetic 2-D images were generated. CAD analysis was submitted and interpreted. COMPARISON: Comparison to multiple prior studies sequentially, with oldest reviewed study dated 11/19. BREAST PARENCHYMAL COMPOSITION: Dense: The breasts are heterogeneously dense, which may obscure small masses FINDINGS: There is no evidence of suspicious mass, calcification, or architectural distortion to sugg est malignancy in either breast. There has been no suspicious interval change. IMPRESSION: 1. No mammographic evidence of malignancy. 2. Recommend routine screening mammography in one year. BI-RADS Category 1: Negative Reviewed, dictated and finalized at location B.
== END 2024-06-07 10:32 | disposition home or self-care (01) ==
PROVIDERS: PCP Family Medicine Adolescent Medicine; Visit Provider Family Medicine Adolescent Medicine
DX: Z12.31 Encounter for screening mammogram for malignant neoplasm of breast (principal)
CPT/HCPCS: 77063; 77067

== ENCOUNTER → 2024-10-07 11:53 | Outpatient (CLI) | payer MEDICARE, SELFPAY ==
--- NOTE | ~2024-10-07 | XR_ITS ---
EXAMINATION: XR chest 2V 10/07/2024 12:07 INDICATION: Dyspnea PROCEDURE: 2 view chest COMPARISON: 09/11/2019 FINDINGS: The lungs are clear. The cardiomediastinal silhouette is within normal limits. There are no pleural effusions. There is no pneumothorax suspected. IMPRESSION: 1: NO ACUTE CARDIOPULMONARY DISEASE. Reviewed, dictated and finalized at location A.
== END ==
PROVIDERS: PCP Nurse Practitioner Family; Visit Provider Nurse Practitioner Family
DX: R06.00 Dyspnea, unspecified (principal)
CPT/HCPCS: 71046

== ENCOUNTER 2024-10-18 07:45 | Outpatient (CLI) | payer MEDICARE, SELFPAY ==
--- OUTSIDE RECORDS SUMMARY | 2024-10-18 07:49 | XMS_ITS | Clinical Summary ---
Author Organization [facility] Address [address] [place] [address] Care Team Providers Care Welding Inspector Name Role Phone Jorge Luis Mazariegos MD Primary Care Provider [phone]- [phone] Allergies No known active allergies Medications hydroCHLOROthiaz oswald 50 mg tablet Take 50 mg by mouth daily. Active PHENobarbitaL (LUMINAL) 15 mg tablet Take 15 mg by mouth 3 times daily. Active rosuvastatin (CRESTOR) 10 mg tablet Take 10 mg by mouth daily at bedtime. Active phenytoin sodium (DILANTIN) 100 mg extended release capsule Take 100 mg by mouth 3 times daily. Active POTASSIUM ORAL Take 10 mg by mouth daily. 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 Family History Medical History Relation Name Comments Cancer Brother 1 Sinus High Cholesterol Brother 1 Hypertension Brother 1 Other Brother 2 back surgery Prostate Cancer Brother 2 Healthy Daughter Heart Disease Father High Cholesterol Father Hypertension Father High Cholesterol Mother Stomach Cancer Mother High Cholesterol Sister Hypertension Sister Other Sister Back surgeries Relation Name Status Comments Brother 1 Brother 2 Daughter Alive Father Mother Sister Alive Social History Tobacco Use Types Packs/Day Years Used Date Smoking Tobacco: Never Smokeless Tobacco: Never Tobacco Cessation:Counseling Given: No Alcohol Use Standard Drinks/Week Comments Yes 0 (1 standard drink = 0.6 oz pur e alcohol) rare Comments Unknown Sex and Gender Information Value Date Recorded Sex Assigned at Not on file Legal Sex Female 10:08 AM ELECTRICIAN RADIO Gender Identity Not on file Sexual Orientation Not on file Occupation Industry Job Start Date Job End Date Not on file Not on file Not on file Not on file Last Filed Vital Signs Vital Sign Reading Time Taken Comments Blood Pressure - - Pulse - - Temperature - - Respiratory Rate - - Oxygen Saturation - - Inhaled Oxygen Concentration - - Weight 54.4 kg (120 lb) 08/06/2019 12:24 PM CDT Height 152.4 cm (5') 08/06/2019 12:24 PM CDT Body Mass Index 23.44 08/06/2019 12:24 PM CDT Plan of Treatment Health Maintenance Due Date Last Done Comments DTAP/TDAP/TD VACCINES (1 - Tdap) 01/02/1967 PNEUMOCOCCAL VACCINE 50+ YEARS (1 of 1 - PCV) 01/02/19 98 ZOSTER VACCINE (1 of 2) 01/02/1998 OSTEOPOROSIS SCREENING 01/02/2013 RSV VACCINE (60+ or ) (1 - 1-dose 75+ series) 01/02/2023 INFLUENZA VACCINE (#1) 2024 Insurance M[address] [id number] Care Teams Welding Inspector Relationship Specialty Start Date End Date Jorge Luis Mazariegos MD PCP - General Family Practice 04/26/19
--- OUTSIDE RECORDS SUMMARY | 2024-10-18 07:49 | XMS_ITS | Clinical Summary ---
Author Organization [facility] Address [address] [place] [address] Care Team Providers Care Territory Development Manager Name Role Phone Jorge Luis Mazariegos MD Primary Care Prov ider Allergies No known active allergies Medications PHENobarbitaL (LUMINAL) 32.4 mg tablet phenobarbital 32.4 mg tablet Active phenytoin ER (DILANTIN) 100 mg ER capsule phenytoin sodium extended 100 mg capsule Active potassium chloride ER (Klor-Con M10) 10 mEq CR tablet Klor-Con M10 mEq tablet,extended release 9 Active rosuvastatin (CRESTOR) 10 mg tablet rosuvastatin 10 mg tablet Active Active Problems No known active problems Surgical History Surgery Date Site/Laterality Comments TUBAL LIGATION 02/24/1982 - 02/23/1983 PERCUTANEOUS NEEDLE BIOPSY MUSCLE 01/01/2021 N/A Medical History Medical History Date Comments Arthritis Seizures (HCC) 1973 Mixed conductive and sensorineural hearing loss 1957 Family History Medical History Relation Name Comments Cancer Brother 1 Al Goldman Diabetes Brother 1 Al Goldman Heart attack Brother 1 Al Goldman Kidney disease Brother 1 Al Goldman Cancer Brother 2 Edin Goldman Cancer Brother 3 Mihir Goldman Cancer Brother 4 David Goldman Vision loss Brother 4 David Goldman Stroke Brother 5 Aníbal Goldman Stroke Brother 6 Chris Goldman Heart attack Father Al Mckeon Jones Cancer Mother Kai Goldman Relation Name Status Comments Brother 1 Al Goldman Brother 2 Edin Goldman Brother 3 Mihir Goldman Brother 4 David Goldman Brother 5 Aníbal Goldman Brother 6 Chris Goldman Father Al Goldman Mother Kai Goldman Social History Tobacco Use Types Packs/Day Years Used Date Smoking Tobacco: Never Smokeless Tobacco: Never Personal Safety Answer Date Recorded Getting School Help Needed Not on file 04/15 Comments Unknown Sex and Gender Information Value Date Recorded Sex Assigned at Not on file Legal Sex Female 8:39 AM TELETYPE OPERATOR Gender Identity Female 11/29/2020 10:16 AM CDT Sexual Orientation Straight 11/29/2020 10 :15 AM CDT Obstetrics History Last Filed Vital Signs Vital Sign Reading Time Taken Comments Blood Pressure 135/67 01/01/2021 9:05 AM TELETYPE OPERATOR Pulse 64 01/01/2021 9:05 AM TELETYPE OPERATOR Temperature 36.7 C (98 F) 01/01/2021 7:32 AM TELETYPE OPERATOR Respiratory Rate 9 01/01/2021 8:45 AM TELETYPE OPERATOR Oxygen Saturation 98% 01/01/2021 9:05 AM TELETYPE OPERATOR Inhaled Oxygen Concentration - - Weight 61.2 kg (135 lb) 01/01/2021 7:32 AM TELETYPE OPERATOR Height 165.1 cm (5' 5) 01/01/2021 7:32 AM TELETYPE OPERATOR Body Mass Index 22.47 01/01/2021 7:32 AM TELETYPE OPERATOR Plan of Treatment Not on file Insurance [facility] MEDICARE Advance Directives For more information, please contact: [phone] * Full Code (Latest Code Status on File) Date Activated Date Inactivated Comments 01/01/2021 8:59 AM 01/02/2021 4:32 AM Care Teams Territory Development Manager Relationship Specialty Start Date End Date Jorge Luis Mazariegos MD [address] [place] [address] PCP - General Family Medicine 10/27/20
--- OUTSIDE RECORDS SUMMARY | 2024-10-18 07:49 | XMS_ITS | Clinical Summary ---
Author Organization [facility] Address [address] [place] [address] Care Team Providers Care Track Hoe Operator Name Role Phone Jorge Luis Mazariegos MD Primary Care Provider +1- [phone] Allergies No known active allergies Medications hydrochlorothia zide 50 MG tablet Take 50 mg by mouth daily. 2 10/18/2017 Active PHENobarbital 15 MG tablet Take 1 tablet by mouth 3 (three) times daily. Active phenytoin ER (DILANTIN) 100 MG capsule Take 1 capsule by mouth 3 (three) times daily. Active KLOR-CON M10 10 MEQ tablet 08/09/2018 Active rosuvastatin 10 MG tablet Take 10 mg by mouth nightly at bedtime. Active Active Problems Problem Noted Date Diagnosed Date Sacroiliitis 12/03/2018 Overview (12/03/2018): Added automatically from request for surgery [id number] Lumbar radiculopathy 09/17/2018 Family History Medical History Relation Comments Cancer Brother Stroke Brother Heart Disease Father Cancer Mother Relation Status Comments Brother Father Mother Social History Tobacco Use Types Packs/Day Years Used Date Smoking Tobacco: Never Smokeless Tobacco: Never Alcohol Use Standard Drinks/Week Comments No 0 (1 standard drink = 0.6 oz pur e alcohol) AUDIT-C Answer Date Recorded Frequency of Alcohol Consumption Never 09/17/2018 Average Number of Drinks Not on file 019 Frequency of Binge Drinking Not on file 08/25 Comments No Sex and Gender Information Value Date Recorded Sex Assigned at Not on file Legal Sex Female 8:01 PM CDT Gender Identity Not on file Sexual Orientation Not on file 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 Not on file Not on file Last Filed Vital Signs Vital Sign Reading Time Taken Comments Blood Pressure 130/78 03/15/2019 11:39 AM BOILERMAKER Pulse 78 03/15/2019 11:39 AM BOILERMAKER Temperature 36.3 C (97.4 F) 03/15/2019 10:31 AM BOILERMAKER Respiratory Rate 20 03/15/2019 11:39 AM BOILERMAKER Oxygen Saturation 100% 03/15/2019 11:39 AM BOILERMAKER Inhaled Oxygen Concentration - - Weight 59 kg (130 lb) 12/28/2018 1:18 PM BOILERMAKER Height 152.4 cm (5') 12/28/2018 1:18 PM BOILERMAKER Body Mass Index 25.39 12/28/2018 1:18 PM BOILERMAKER Plan of Treatment Health Maintenance Due Date Last Done Comments Hepatitis C 01/02/1966 DTaP, Tdap and Td Vaccines ( 1 - Tdap) 01/02/1967 Pneumococcal Vaccine: 50+ Ye ars (1 of 1 - PCV) 01/02/1998 Zoster Vaccines (1 of 2) 01/02/1998 Annual Medicare Wellness Visit 01/02/2013 Dexa Scan (General) 01/02/2013 RSV Immunization or 60+ Years (1 - 1-dose 75+ series) 01/02/2023 COVID-19 Vaccine (1 - 2023-2 5 season) 2023 Meningococcal B Vaccine Aged Out No l onger eligible based on patient's age to complete this topic Meningococcal Vaccine Aged Out No yoel tequila eligible based on patient's age to complete this topic RSV Immunizations Under 20 Months Aged Out No longer eligible based on patient's age to complete this topic Insurance [employer] Care Teams Track Hoe Operator Relationship Specialty Start Date End Date Jorge Luis Mazariegos MD [address] [address] PCP - General 08/19/11
--- NOTE | 2024-10-18 07:52 | ECHO_ITS ---
Patient Info Name: Pari Trent Age: 74 years : 1950 Gender: Female Ht: 60 in Wt: 150 lbs BSA: 1.72 m2 HR: 79 bpm BP: 152 / 91 mmHg Heart Rhythm: Sinus Rhythm Technical Quality: Fair Exam Date: 10/18/2024 8:59 AM Patient Status: O Admit Date: 10/18/2024 Exam Type: CA echo doppler color flow Complete two-dimensional, color flow and Doppler transthoracic echocardiogram is performed. Photonics Engineer: Raina De La Rosa Attending Provider: Yasemin Gonzales Summary 1. Complete two-dimensional, color flow and Doppler transthoracic echocardiogram is performed. 2. Left ventricular chamber dimension is normal. 3. Left ventricular systolic function is normal, estimated at 60-65. 4. The left ventricular diastolic function is grade I diastolic dysfunction. 5. E/e' 14 is mildly elevated. 6. There is mild aortic valve sclerosis. 7. There is trace aortic valve regurgitation. 8. There is mild mitral valve regurgitation. 9. There is trace tricuspid valve regurgitation. 10. No pulmonary hypertension, estimated pulmonary arterial systolic pressure is 24 mmHg. Left Ventricle E/e' 14 is mildly elevated. Left ventricular chamber dimension is normal. Left ventricular systolic function is normal, estimated at 60-65. The left ventricular diastolic function is grade I diastolic dysfunction. Right Ventricle Right ventricular chamber dimension is normal. Right ventricular systolic function is normal and with normal TAPSE 2.5 cm. Left Atria Left atrial chamber dimension is normal. Right Atria Right atrial chamber dimension is normal. Aortic Valve The aortic valve is trileaflet. There is mild aortic valve sclerosis. There is no aortic valve stenosis. There is trace aortic valve regurgitation. Pulmonic Valve There is no pulmonic regurgitation. Mitral Valve There is no mitral valve stenosis. There is mild mitral valve regurgitation. Tricuspid Valve There is trace tricuspid valve regurgitation. No pulmonary hypertension, estimated pulmonary arterial systolic pressure is 24 mmHg. Pericardium/Pleural There is no pericardial effusion. Inferior Vena Cava Normal inferior vena cava with >50% collapse upon inspiration consistent with normal right atrial pressure, 5 mmHg. Aorta The aortic root size at the sinus of Valsalva is normal. Left Ventricular Outflow Tract Name Value Normal LVOT 2D LVOT Diameter 2.0 cm LVOT Doppler LVOT Peak Velocity 72 cm/s LVOT Peak Gradient 2 mmHg LVOT Mean Gradient 1 mmHg LVOT VTI 17 cm LVOT VTI/AV VTI Ratio 0.7 LVOT Stroke Volume 51 ml LVOT CO 3.4 l/min LVOT CI 2.0 l/min/m2 Pulmonic Valve Name Value Normal RVOT Doppler RVOT Peak Velocity 70 cm/s RVOT Peak Gradient 2 mmHg PV Doppler PV Peak Velocity 88 cm/s PV Peak Gradient 3 mmHg Mitral Valve Name Value Normal MV Diastolic Function MV E Peak Velocity 69 cm/s MV A Peak Velocity 100 cm/s MV E/A 0.7 MV Decel Time (PW) 214 ms MV Annular TDI MV E/e' (Septal) 14.6 MV E/e' (Lateral) 14.2 MV E/e' (Average) 14.4 Tricuspid Valve Name Value Normal TV Regurgitation Doppler TR Peak Velocity 217 cm/s TR Peak Gradient 15 mmHg Estimated PAP/RSVP RA Pressure 5 mmHg <=5 PA Systolic Pressure 24 mmHg <36 RV Systolic Pressure 24 mmHg <36 TV Annular TDI TV Lateral Ingrid s' Velocity 10.8 cm/s >=9.5 Aorta Name Value Normal Ascending Aorta Ao Root Diameter (MM) 2.9 cm Ao Root Diam Index (MM) 1.7 cm/m2 Aortic Valve Name Value Normal AV Doppler AV Peak Velocity 132 cm/s AV Peak Gradient 7 mmHg AV Mean Gradient 3 mmHg AV VTI 25 cm AV Area (Cont Eq VTI) 2.1 cm2 >=3.0 AV Area (Cont Eq Aime) 1.7 cm2 AV DI (Aime) 0.54 AV Regurgitation 2D LVOT Area 3.1 cm2 Ventricles Name Value Normal LV Dimensions 2D/MM IVS Diastolic Thickness (2D) 0.9 cm 0.6-1.0 LVID Diastole (2D) 4.5 cm 3.8-5.2 LVIW Diastolic Thickness (2D) 0.8 cm 0.6-0.9 LVID Systole (2D) 2.9 cm 2.2-3.5 LVOT Diameter 2.0 cm LV Mass (2D Cubed) 121.55 g 67.00-162.00 LV Mass Index (2D Cubed) 71 g/m2 43-95 Relative Wall Thickness (2D) 0.36 <=0.42 LV Fractional Shortening/Ejection Fraction 2D/MM LV Fractional Shortening (2D) 36 % 27-45 LV EF (2D Teichholz) 65 % LV Diastolic Volume (4C MOD) 62 ml LV EF (4C MOD) 66 % LV Diastolic Volume (2C MOD) 44 ml LV EF (2C MOD) 69 % LV Diastolic Volume (BP MOD) 53 ml 46-106 LV Diastolic Volume Index (BP MOD) 30 ml/m2 29-61 LV Systolic Volume (BP MOD) 17 ml 14-42 LV Systolic Volume Index (BP MOD) 10 ml/m2 8-24 LV EF (BP MOD) 67 % 54-74 LV Diastolic Length (4C) 7.0 cm LV Systolic Length (4C) 5.7 cm LV Stroke Volume (4C MOD) 41 ml Atria Name Value Normal LA Dimensions LA Dimension (MM) 3.3 cm 2.7-3.8 LA Volume (4C A-L) 37 ml LA Volume (BP A-L) 40 ml RA Dimensions RA Area (4C) 11.9 cm2 <=18.0 Report Signatures
--- NOTE | 2024-10-18 14:10 | WPDSIXMINUTE ---
Six Minute Walk Procedure Procedure Performed Pulmonary Stress Test (6 min walk) Six Minute Walk Six Minute Walk: This is a 6 minute walk test. The test was performed and interpreted in accordance with the 2014 ERS/ATS task force guidelines. Findings: The patient's resting room air oxygen saturation measured by pulse oximetry was 99%, the heart rate was 70 bpm, and the modified Annabelle dyspnea score was 3. Patient ambulated for 244 meters and oxygen saturation remained 99%. At the end of the study the heart rate was 91 bpm and the modified Annabelle dyspnea score was 4. The patient did not qualify for supplemental oxygen at rest or with ambulation. There are no prior studies for comparison.
== END 2024-10-18 07:46 | disposition home or self-care (01) ==
PROVIDERS: PCP Nurse Practitioner Family; Visit Provider Nurse Practitioner Family
DX: R93.1 Abnormal findings on diagnostic imaging of heart and coronary circulation (principal); I10 Essential (primary) hypertension; R06.09 Other forms of dyspnea; E78.00 Pure hypercholesterolemia, unspecified
CPT/HCPCS: 93306; 94618